=== PATIENT | male | born 1945 | race Caucasian/White ===

== ENCOUNTER 2016-11-17 02:38 | Emergency (ER) ==
--- NOTE | 2016-11-17 03:21 | PROVIDER DOCUMENTATION ---
HPI-General Adult - General Chief Complaint: Weakness Stated Complaint: WEAKNESS Time Seen by Provider: 11/17/16 02:54 Source: patient, family Allergies/Adverse Reactions: Patient Allergies Allergy/AdvReac Type Severity Reaction Status Date / Time influenza virus vaccine, AdvReac ANAPHYLAXIS Verified 11/17/16 02:44 specific Home Medications: Home Medication List Medication Instructions Recorded Confirmed Last Taken Type Omeprazole [Prilosec] 20 mg PO DAILY 08/28/12 11/17/16 06/13/14 06:30 History 20 Alprazolam [Xanax] 0.5 mg PO BID PRN 06/10/14 11/17/16 06/11/14 02:00 History 0.5 Apixaban [Eliquis] 5 mg PO BID 06/10/14 11/17/16 06/11/14 History 5 ROSUVAstatin [Crestor] 20 mg PO HS 06/10/14 11/17/16 06/12/14 22:00 History 20 Spironolactone [Aldactone] 25 mg PO DAILY 06/10/14 11/17/16 06/10/14 08:00 History Temazepam 30 mg PO HS 06/10/14 11/17/16 06/12/14 23:00 History 30 Insulin Detemir [Levemir] 35 unit SQ QAM #0 11/01/14 11/17/16 Unknown Rx Insulin Detemir [Levemir] 35 unit SQ QPM #0 11/01/14 11/17/16 Unknown Rx Insulin Lispro [Humalog] See Protocol SUBQ DIRECTED PRN 11/01/14 11/17/16 Unknown Rx PRN #0 vial Nitroglycerin [Nitroglycerin 0 gm SL Q5M PRN PRN #0 bottle 11/01/14 11/17/16 Unknown Rx Lingual [place]] Ranolazine E.r. [Ranexa] 500 mg PO BID #0 11/01/14 11/17/16 06/13/14 06:30 Rx 1000 Levofloxacin [Levaquin] 750 mg PO DAILY #7 tablet 11/17/16 Unknown Rx - History of Present Illness -Gen Adult Location of Pain/Injury: reports: none Pain Radiation: reports: no radiation Quality of Pain: reports: none Onset/Duration: reports: 2 days ago Timing: reports: still present Context/Activities at Onset: reports: light activity Modifying Factors: improves with: exercise Associated Symptoms: reports: fever/chills, shortness of breath Similar Symptoms Previously?: Yes Recently seen or treated by another doctor?: Yes - Diabetes Related Context Context: reports: high blood sugar Review of Systems - Adult - REVIEW OF SYSTEMS - ADULT Constitutional: reports: fever Eyes: reports: no symptoms reported Ears, Nose, Mouth & Throat: reports: no symptoms reported Cardiovascular: reports: edema, irregular heart rate, orthopnea, palpitations Respiratory: reports: chronic cough, dyspnea on exertion, shortness of breath Gastrointestinal: reports: no symptoms reported Genitourinary: reports: other (DARK MALODOROUS URINE) Musculoskeletal: reports: no symptoms reported Integumentary: reports: no symptoms reported Neurological: reports: no symptoms reported Psychiatric: reports: no symptoms reported Endocrine: reports: no symptoms reported Hematologic/Lymphatic: reports: no symptoms reported Allergic/Immunologic: reports: no symptoms reported All Other Systems: Reviewed and Negative Past History - Adult - PAST MEDICAL HISTORY-ADULT Review of Records: reports: Old Records Reviewed, Nursing Assessment Review, Medications Reviewed, Social history reviewed & non-contributory. Major Childhood Illnesses: reports: denies history Cardiovascular: reports: CAD, CHF, HTN, hyperlipidemia Respiratory: reports: COPD, sleep apnea Gastrointestinal: reports: denies history Obstetrical/Gynecological: reports: denies history Genitourinary: reports: chronic UTI's, prostatitis Musculoskeletal: reports: arthritis Neurological: reports: denies history Psychiatric: reports: denies history Endocrine/Immune: reports: Diabetes Diabetes Type: Type 2 Diabetes controlled by:: Insulin Dependent Other Conditions: reports: denies history - PRIOR SURGERIES/PROCEDURES Surgical/Procedure History: reports: cardiac stent, orthopedic (extremity) (TKA) - PRIOR HOSPITALIZATIONS Prior Hospitalizations: reports: for similar symptoms, for other non-related - IMMUNIZATION STATUS Childhood Immunizations: See Nurse Assessment Flu Vaccine: See Nurse Assessment - FAMILY HISTORY Family History: reviewed, not pertinent - SOCIAL HISTORY Smoking: non-smoker Substance Use: none/never Alcohol Use Frequency: rarely Living Situation: family Physical Exam-General - PHYSICAL EXAM-ADULT Initial Vital Signs Reviewed: Yes - CONSTITUTIONAL General Appearance: no apparent distress, obese - EYES Eyes: PERRL/EOMI - HEAD, EARS, NOSE, MOUTH & THROAT HENMT: normocephalic/atraumatic, moist mucous membranes, normal ENT inspection - NECK Neck: non-tender - RESPIRATORY Respiratory: decreased breath sounds (ON RIGHT), rales (BIBASILAR WORSE ON RIGHT ) - CARDIOVASCULAR Cardiovascular: normal peripheral pulses, irregularly irregular - CHEST (BREASTS) Chest/Breast: deferred - GASTROINTESTINAL (ABDOMEN) Abdominal Exam: normal bowel sounds, non tender (OBESE) - GENITOURINARY Male Genitalia: deferred Rectal Exam: deferred Hemoccult Exam: deferred - LYMPHATIC Lymphatic: no adenopathy - MUSCULOSKELETAL Back Exam: normal inspection, no CVA tenderness Extremity: no pedal edema, other (CHRONIC VENOUS STASIS CHANGES LEGS) Peripheral Pulses: radial (R): 3+, radial (L): 3+, dorsalis-pedis (R): 1+, dorsalis-pedis (L): 1+ - SKIN Integumentary: normal color, normal turgor, warm/dry - NEUROLOGIC Neurologic: grossly normal, no motor/sensory deficits - PSYCHIATRIC Psych/Mental Status: normal mood/affect, normal thought content, normal thought process, oriented x 3 Progress - XRAY 1 XRAY Study: Chest (cardiomegally with somewhat more prominent pulmonary vasculature than 10/2014 study) Departure - Departure Time of Disposition Order: 05:00 DIAGNOSIS: UTI (urinary tract infection) Qualifiers: Urinary tract infection type: acute pyelonephritis Qualified Code(s): N10 - Acute pyelonephritis Disposition: HOME 01 Certified Medical Emergency: Emergent Condition: Fair Additional Instructions: FOLLOW UP WITH FAMILY DOCTOR IN 2-3 DAYS Prescriptions: Levofloxacin [Levaquin] 750 mg PO DAILY #7 tablet
[2016-11-17 03:29] LABS: MANUAL DIFF NEEDED? NO
[2016-11-17 03:30] LABS: URINE SOURCE VOIDED
[2016-11-17 03:37] LABS: BASO% 0.2 % (0.0-0.8); EOS# 0.05 X1000 (0.0-0.7); EOS% 0.4 % (0.0-10.0); HEMOGLOBIN 17.7 g/dL (14.0-18.0); IMM GRAN# 0.08 X1000 (0.0-0.04); IMM GRAN% 0.6 % (0.0-0.5); LYMPH# 1.51 X1000 (1.2-3.4); LYMPH% 11.3 % (20.5-51.1); MCH 30.6 PG (27-31); MCHC 34.7 g/dL (33-37); MCV 88.2 FL (81-99); MONO% 7.5 % (1.7-9.3); MPV 9.3 FL (7.4-10.4); PLT 141 X1000 (130-400); RBC 5.78 XMIL (4.7-6.1)
[2016-11-17 03:52] LABS: ALBUMIN 3.2 g/dL (3.5-5.0); CALCIUM 8.8 mg/dL (8.8-10.2); POTASSIUM 4.4 mmol/L (3.5-5.1); TOTAL BILIRUBIN 0.7 mg/dL (0.20-1.00); TOTAL PROTEIN 6.6 g/dL (6.3-8.3)
[2016-11-17 04:10] LABS: BILIRUBIN URINE 1+ (NEGATIVE); BLOOD URINE 4+ (NEGATIVE); CLARITY CLEAR (CLEAR); COLOR AMBER; LEUKOCYTES URINE TRACE (NEGATIVE); NITRITE URINE NEGATIVE (NEGATIVE); PROTEIN URINE 2+(100 mg/dL) mg/dL (NEGATIVE); UROBILINOGEN URINE 1+(1 mg/dL)
[2016-11-17 04:18] LABS: URINE EPITHELIAL CELLS <10 /HPF (<10); URINE RBC TNTC /HPF (<10); URINE WBC <10 /HPF (<10)
[2016-11-17 04:19] LABS: URINE CULTURE PL NEEDED? YES
[2016-11-17 04:23] LABS: URINE SMALL ROUND CELLS RENAL PRESENT
[2016-11-17] MEDS ORDERED: LEVAQUIN PO ONE (04:53)
[2016-11-17 05:20] VITALS: BP 132/72
--- NOTE | 2016-11-17 08:20 | Diag Imaging Result Document ---
PROCEDURE NAME: CHEST-2 VIEWS - 11/17/2016 FRONTAL AND LATERAL CHEST, TWO VIEWS: COMPARISON: 10/31/2014. FINDINGS: The lungs are well expanded. The heart is not enlarged. The vessels are not distended. There are no infiltrates. No pleural effusions. IMPRESSION: No pneumonia.
== END 2016-11-17 05:28 | disposition home or self-care (01) ==
LOC: P.ED 02:38
DX: N10 Acute pyelonephritis (principal); R53.1 Weakness; R50.9 Fever, unspecified; R06.02 Shortness of breath; R60.9 Edema, unspecified; R06.01 Orthopnea; R00.2 Palpitations; R05 Cough; R06.00 Dyspnea, unspecified; I87.8 Other specified disorders of veins; I25.10 Atherosclerotic heart disease of native coronary artery without angina pectoris; I10 Essential (primary) hypertension; E78.5 Hyperlipidemia, unspecified; J44.9 Chronic obstructive pulmonary disease, unspecified; M19.90 Unspecified osteoarthritis, unspecified site; E11.9 Type 2 diabetes mellitus without complications; E66.9 Obesity, unspecified; Z79.01 Long term (current) use of anticoagulants; Z79.4 Long term (current) use of insulin; Z79.899 Other long term (current) drug therapy; Z87.440 Personal history of urinary (tract) infections; Z96.659 Presence of unspecified artificial knee joint
CPT/HCPCS: 71020; 80053; 81001; 85025; 87088

== ENCOUNTER 2018-08-14 05:39 | Inpatient (IN) ==
[2018-08-14] MEDS ORDERED: ASPIRIN PO ONE (06:13)
--- NOTE | 2018-08-14 06:30 | Diag Imaging Result Doc PS360 ---
EXAM: CHEST-1 VIEW HISTORY: cp TECHNIQUE: Portable chest single view COMPARISON: 05/04/2018 FINDINGS: The lungs are well expanded. The heart is enlarged. There is mild vascular distention. There is a small right pleural effusion. No consolidation. IMPRESSION: Cardiomegaly with pulmonary edema. Electronically signed by Carmelo Bajwa 08/14/2018 6:28 AM
[2018-08-14 06:37] LABS: BASO# 0.07 X1000 (0.0-0.2); BASO% 1.6 % (0.0-0.8); EOS# 0.55 X1000 (0.0-0.7); EOS% 12.7 % (0.0-10.0); HEMATOCRIT 45.1 % (42.0-52.0); HEMOGLOBIN 14.7 g/dL (14.0-18.0); LYMPH# 1.18 X1000 (1.2-3.4); LYMPH% 27.2 % (20.5-51.1); MCH 29.9 PG (27-31); MCHC 32.6 g/dL (33-37); MCV 91.9 FL (81-99); MONO# 0.41 X1000 (0.11-0.59); MONO% 9.4 % (1.7-9.3); MPV 9.3 FL (7.4-10.4); NEUT# 2.13 X1000 (1.4-6.5); NEUT% 49.1 % (42.2-75.2); PLT 127 X1000 (130-400); RBC 4.91 XMIL (4.7-6.1); RDW 15.3 % (11.5-14.5); WBC 4.34 X1000 (4.8-10.8)
[2018-08-14 06:47] LABS: AGAP 9; ALBUMIN 3.2 g/dL (3.5-5.0); ALKALINE PHOSPHATASE 42 U/L (32-122); BUN 13 mg/dL (8-22); CALCIUM 9.1 mg/dL (8.8-10.2); CHLORIDE 101 mmol/L (98-107); CK PROFILE 64 U/L (24-204); COSMO 276; CREATININE 0.8 mg/dL (0.7-1.2); ESTIMATED GFR > 60; GLUCOSE 103 mg/dL (70-104); GOT 16 U/L (10-34); GPT 9 U/L (10-44); SODIUM 138 mmol/L (136-145); TCO2 28 mmol/L (25-35); TOTAL PROTEIN 6.5 g/dL (6.3-8.3)
[2018-08-14 06:54] LABS: INR 1.13; PROTIME 15.4 Seconds (11.0-16.0)
[2018-08-14 06:55] LABS: PTT 37.4 Seconds (22.3-41.8)
[2018-08-14] MEDS ORDERED: LASIX IV ONE (06:57)
[2018-08-14] MEDS ORDERED: MORPHINE IV ONE (06:57)
--- NOTE | 2018-08-14 07:04 | PROVIDER DOCUMENTATION ---
HPI-Chest Pain - General Chief Complaint: Chest Pain Stated Complaint: chest pain Time Seen by Provider: 08/14/18 06:49 Source: patient, family Allergies/Adverse Reactions: Patient Allergies Allergy/AdvReac Type Severity Reaction Status Date / Time Penicillins Allergy Severe ANAPHYLAXIS Verified 06/30/18 10:13 clindamycin [From Cleocin] Allergy Unknown NAUSEA Verified 06/30/18 10:13 influenza virus vaccine, AdvReac Severe ANAPHYLAXIS Verified 06/30/18 10:13 specific Home Medications: Home Medication List Medication Instructions Recorded Confirmed Last Taken Type Omeprazole [Prilosec] 20 mg PO DAILY 08/28/12 06/30/18 06/30/18 08:00 History Alprazolam [Xanax] 0.5 mg PO BID PRN PRN 06/10/14 06/30/18 06/29/18 History Apixaban [Eliquis] 5 mg PO BID 06/10/14 06/30/18 06/29/18 History ROSUVAstatin [Crestor] 20 mg PO HS 06/10/14 06/30/18 06/29/18 History Hydrocodone/Acetaminophen [[place] 1 each PO Q6H PRN PRN 05/04/18 06/30/18 History 10-325 Tablet] Insulin Glargine [Lantus] 35 units SQ BID 05/04/18 06/30/18 06/30/18 08:00 History Metoprolol Succinate E.r. [Toprol 50 mg PO BID #120 tab 05/05/18 06/30/18 08:00 Rx Xl] Cholecalciferol (Vitamin D3) 1,000 unit PO DAILY 06/29/18 06/30/18 06/23/18 History [Vitamin D3] Furosemide [Lasix] 40 mg PO QAM PRN 06/29/18 06/30/18 06/16/18 History LISINOpril [Prinivil] 10 mg PO DAILY 06/29/18 06/30/18 06/30/18 08:00 History Meclizine HCl 12.5 mg PO TID 06/29/18 06/30/18 06/29/18 History Nitroglycerin [Nitromist] 4.1 gm TL PRN PRN 06/29/18 06/30/18 Unknown History Oxybutynin E.r. [Ditropan Xl] 10 mg PO BID 06/29/18 06/30/18 06/30/18 08:00 History Potassium Chloride 10 meq PO DAILY PRN 06/29/18 06/30/18 06/16/18 History Temazepam [Restoril] 30 mg PO HS PRN PRN 06/29/18 06/30/18 06/28/18 History Triamcinolone Acetonide [Nasacort] 1 spray NS DAILY 06/29/18 06/30/18 06/29/18 History - History of Present Illness-CP Nature of Presenting Problem: 72 yo male, hx of aortic stenosis and ASCVD a well as CHF, c/o intermittent right parasternal CP radiating across precordium to left shoudler for the last 2 -3 days, associated with SOB, MADDEN and orthopnea. States took multiple NTG over the weekend, which di help the pain somewhat. Also took 6 Frederick 10/325 over the weekend. Called Dr. Richard and Marko last night, told to come here that he may need evaluation for valve replacement. States pain was much more severe this morning, only "sore" now. Location: reports: substernal Chest Pain Radiation: reports: shoulders (left) Quality of Pain: reports: aching, pressure Severity in ED: mild (had been severeat home) Onset/Duration: 3 days ago Timing: still present, intermittent, changing over time, getting worse Context/Activities at Onset: reports: light activity Modifying Factors: improves with: analgesics, rest, other (NTG). worse with: movement Associated Symptoms: reports: shortness of breath, weakness (very weak this morning.) Nitro Today/Relief: 0.4 mg x 3, provided at home, mild relief Aspirin Treatment Today: 325 mg x 1 Prior Chest Pain/Cardiac Workup: reports: cardiac cath, cardiolite scan, echocardiography, stress test, thallium scan Similar Symptoms Previously?: Yes Recently Seen Here or By Another Healthcare Provider: Yes (Drs. Gonsalez are cardiologists, Dr. Richard is his ) Review of Systems - Adult - REVIEW OF SYSTEMS - ADULT Constitutional: reports: chills ("cold all the time because I'm on Eliquis"). denies: fever, fatique, night sweats, weight gain, weight loss Eyes: reports: no symptoms reported Ears, Nose, Mouth & Throat: reports: no symptoms reported Cardiovascular: reports: see HPI, chest pain, edema, orthopnea, PND. denies: heart murmur, irregular heart rate, palpitations, poor circulation, syncope Respiratory: reports: see HPI, cough, dyspnea on exertion, shortness of breath Gastrointestinal: reports: no symptoms reported Genitourinary: reports: no symptoms reported Musculoskeletal: reports: no symptoms reported Integumentary: reports: no symptoms reported Neurological: reports: no symptoms reported Psychiatric: reports: no symptoms reported Endocrine: reports: no symptoms reported Hematologic/Lymphatic: reports: no symptoms reported Allergic/Immunologic: reports: no symptoms reported All Other Systems: Reviewed and Negative Past History - Adult - PAST MEDICAL HISTORY-ADULT Review of Records: reports: Old Records Reviewed, Nursing Assessment Review, Medications Reviewed, Social history reviewed & non-contributory. Major Childhood Illnesses: reports: denies history Cardiovascular: reports: CAD, CHF, HTN, hyperlipidemia Respiratory: reports: COPD, sleep apnea Gastrointestinal: reports: denies history Obstetrical/Gynecological: reports: denies history Genitourinary: reports: chronic UTI's, prostatitis Musculoskeletal: reports: arthritis Neurological: reports: denies history Psychiatric: reports: denies history Endocrine/Immune: reports: Diabetes Other Conditions: reports: denies history - PRIOR SURGERIES/PROCEDURES Surgical/Procedure History: reports: cardiac stent, orthopedic (extremity) (TKA) - PRIOR HOSPITALIZATIONS Prior Hospitalizations: reports: for similar symptoms, for other non-related - IMMUNIZATION STATUS Childhood Immunizations: See Nurse Assessment Flu Vaccine: See Nurse Assessment - FAMILY HISTORY Family History: reviewed, not pertinent - SOCIAL HISTORY Smoking: cigarettes, less than 1 pack/day Provider spent 3-5 mins advising pt. on dangers of tobacco.: Discussed manners to quit use, and f/u contacts for add'l counseling. Substance Use: none/never Alcohol Use Frequency: rarely Living Situation: family Physical Exam-General - PHYSICAL EXAM-ADULT Initial Vital Signs Reviewed: Yes (VSSAF) - CONSTITUTIONAL General Appearance: appears well, alert, no apparent distress - EYES Eyes: PERRL/EOMI, pink conjunctivae - HEAD, EARS, NOSE, MOUTH & THROAT HENMT: normocephalic/atraumatic, moist mucous membranes, normal ENT inspection, pharynx normal - NECK Neck: non-tender, full range of motion, supple, normal inspection - RESPIRATORY Respiratory: chest non-tender, no pleuratic chest pain, no respiratory distress , no accessory muscle use, decreased breath sounds, rhonchi - CARDIOVASCULAR Cardiovascular: normal peripheral pulses, no JVD, systolic murmur, gallop/S3, irregularly irregular, PMI displaced laterally - GASTROINTESTINAL (ABDOMEN) Abdominal Exam: normal bowel sounds, non tender, soft, no organomegaly, no pulsatile mass - MUSCULOSKELETAL Back Exam: normal inspection, no CVA tenderness, no vertebral tenderness Extremity: normal range of motion, non-tender, normal gait, no calf tenderness, normal capillary refill, pedal edema (3+ bilateral) - SKIN Integumentary: normal turgor, warm/dry, rash (chronic stasis changes bilateral lower extremities) - NEUROLOGIC Neurologic: towel sorter II-XII nml as tested, grossly normal, no motor/sensory deficits - PSYCHIATRIC Psych/Mental Status: normal mood/affect, normal thought content, normal thought process, oriented x 3 Progress - PLAN OF CARE/RESULTS Progress/Plan/Lab Results: Vital Signs - 8 hr 08/14/18 05:44 08/14/18 05:59 08/14/18 06:03 Temperature 98.3 F Pulse Rate 96 H 85 100 H Respiratory Rate 24 21 25 H Blood Pressure 165/92 182/125 137/97 O2 Sat by Pulse Oximetry 98 98 99 Laboratory Results - last 24 hr 08/14/18 08/14/18 08/14/18 05:49 05:49 05:49 WBC 4.34 L RBC 4.91 Hgb 14.7 Hct 45.1 MCV 91.9 MCH 29.9 MCHC 32.6 L RDW Std Deviation 15.3 H Plt Count 127 L MPV 9.3 Immature Gran % (Auto) 0.0 Neut % (Auto) 49.1 Lymph % (Auto) 27.2 [place] % (Auto) 9.4 H Eos % (Auto) 12.7 H Baso % (Auto) 1.6 H Immature Gran # (Auto) 0.00 Neut # (Auto) 2.13 Lymph # (Auto) 1.18 L [place] # (Auto) 0.41 Eos # (Auto) 0.55 Baso # (Auto) 0.07 PT INR PTT (Actin FS) Sodium 138 Potassium 4.0 Chloride 101 Carbon Dioxide 28 Anion Gap 9 BUN 13 Creatinine 0.8 Estimated GFR/1.73 m2 > 60 BUN/Creatinine Ratio 16 Glucose 103 Calculated Osmolality 276 Calcium 9.1 Total Bilirubin 0.90 AST 16 ALT 9 L Alkaline Phosphatase 42 Creatine Kinase 64 Troponin T Fsh-H-Edbawyypnhv Pept 1552 H Total Protein 6.5 Albumin 3.2 L Globulin 3.3 Albumin/Globulin Ratio 1.0 Urine Source Urine Color Urine Turbidity Urine pH Ur Specific [place] Urine Protein Ur Glucose (Stick) Ur Ketones (Stick) Urine Blood Urine Nitrite Urine Bilirubin Urobilinogen Dipstick Urine Leukocytes Urine WBC (Auto) Urine RBC (Auto) U Epithel Cells (Auto) Urine Bacteria (Auto) 08/14/18 08/14/18 08/14/18 05:49 05:49 06:40 WBC RBC Hgb Hct MCV MCH MCHC RDW Std Deviation Plt Count MPV Immature Gran % (Auto) Neut % (Auto) Lymph % (Auto) [place] % (Auto) Eos % (Auto) Baso % (Auto) Immature Gran # (Auto) Neut # (Auto) Lymph # (Auto) [place] # (Auto) Eos # (Auto) Baso # (Auto) PT 15.4 INR 1.13 PTT (Actin FS) 37.4 Sodium Potassium Chloride Carbon Dioxide Anion Gap BUN Creatinine Estimated GFR/1.73 m2 BUN/Creatinine Ratio Glucose Calculated Osmolality Calcium Total Bilirubin AST ALT Alkaline Phosphatase Creatine Kinase Troponin T < 0.010 Pvs-[id number]-Zltvqwxiguk Pept Total Protein Albumin Globulin Albumin/Globulin Ratio Urine Source CLEAN CATCH Urine Color YELLOW Urine Turbidity CLEAR Urine pH 6.0 Ur Specific [place] 1.000 Urine Protein 100 A Ur Glucose (Stick) NEGATIVE Ur Ketones (Stick) NEGATIVE Urine Blood SMALL A Urine Nitrite NEGATIVE Urine Bilirubin NEGATIVE Urobilinogen Dipstick NORMAL Urine Leukocytes NEGATIVE Urine WBC (Auto) <10 Urine RBC (Auto) <10 U Epithel Cells (Auto) <10 Urine Bacteria (Auto) NEGATIVE Orders Category Date Time Status Cardiac Monitoring DIRECTED Care 08/14/18 06:13 Active Misc. NRSG Communication Order DIRECTED Care 08/14/18 07:40 Active Oxygen Therapy- ED Nursing DIRECTED Care 08/14/18 06:13 Active Saline Loc NOW Care 08/14/18 06:13 Active CHEST-1 VIEW [RAD] Stat Exams 08/14/18 06:13 Completed CBC WITH ELECTRONIC DIFF [HEME] Stat Lab 08/14/18 05:49 Completed CK PROFILE [SP CHEM] Stat Lab 08/14/18 05:49 Completed COMPREHENSIVE METABOLIC PANEL [CHEM] Stat Lab 08/14/18 05:49 Completed PRO B-NATRIURETIC PEPTIDE Stat Lab 08/14/18 05:49 Completed PROTIME WITH INR [COAG] Stat Lab 08/14/18 05:49 Completed PTT [COAG] Stat Lab 08/14/18 05:49 Completed TROPONIN T Stat Lab 08/14/18 05:49 Completed UA NIMS W/REFLEX CULT [URINALYSIS] Stat Lab 08/14/18 06:40 Completed Aspirin Med 08/14/18 06:13 Discontinued 325 mg PO NOW ONE Furosemide [Lasix] Med 08/14/18 06:57 Discontinued 40 mg IV NOW ONE Morphine Med 08/14/18 06:57 Discontinued 2 mg IV NOW ONE Nitroglycerin Med 08/14/18 06:57 Discontinued 1 inch TOP NOW ONE CP/SOB/Palp >45 yrs of Age Stat Oth 08/14/18 06:13 Ordered EKG [EKG] Stat Ther 08/14/18 06:15 Ordered Result Diagrams: 08/14/18 05:49 08/14/18 05:49 - CONSULTS/PCP/HOSPITALIST Notification #1 *Consult/PCP/Hospitalist*: Marko paged at [phone], Deep paged at [phone] Time Discussed: 07:40 (Unable to transfer to b/c they are holding 30 admits in ED) Reason/Comments: Admit to hospitalist, no nitrates, gentle diuresis Consult Disposition: Admit #2 Consult: ART Garcia Time Discussed: 07:58 Reason/Comments: admit to [facility] Consult Disposition: Admit Departure - Departure Date of Disposition Decision: 08/14/18 Time of Disposition Decision: 07:59 DIAGNOSIS: Substernal precordial chest pain, History of aortic stenosis CHF (congestive heart failure) Qualifiers: Heart failure type: combined systolic and diastolic Heart failure chronicity: acute on chronic Qualified Code(s): I50.43 - Acute on chronic combined systolic (congestive) and diastolic (congestive) heart failure Disposition: ADMITTED INPATIENT 09 Certified Medical Emergency: Emergent Condition: Fair - Critical Care Note This patient required my direct & personal management of CC.: No Attestation - Physician/ MARK Attestation Patient care was provided by Advanced Practice Provider:: No The physician spent face to face time with patient:: Yes Advanced Practice Provider documentation review:: Supervising physician onsite and consulted in the evaluation and care of this patient. The physician did have a face to face encounter with the patient.
[2018-08-14 07:14] LABS: URINE SOURCE CLEAN CATCH
[2018-08-14 07:18] LABS: BILIRUBIN URINE NEGATIVE (NEGATIVE); BLOOD URINE SMALL (NEGATIVE); COLOR YELLOW; GLUCOSE URINE NEGATIVE (NEGATIVE); KETONE URINE NEGATIVE (NEGATIVE); LEUKOCYTES URINE NEGATIVE (NEGATIVE); NITRITE URINE NEGATIVE (NEGATIVE); PROTEIN URINE 100 mg/dL (NEGATIVE); TURBIDITY URINE CLEAR (CLEAR); UROBILINOGEN URINE NORMAL (NORMAL)
[2018-08-14 07:20] LABS: UR EPITHELIAL CELLS <10 /HPF (<10); URINE BACTERIA NEGATIVE /HPF; URINE RBC <10 /HPF (<10); URINE WBC <10 /HPF (<10)
[2018-08-14] MEDS: NITROGLYCERIN TOP ONE ×2 (07:20→07:45)
--- NOTE | 2018-08-14 08:13 | EKG Report ---
Test Performed on : 08/14/2018 05:41:15 AM Test Reason : cp Blood Pressure : / mmHG Vent. Rate : 083 BPM Atrial Rate : 067 BPM P-R Int : 000 ms QRS Dur : 076 ms QT Int : 366 ms P-R-T Axes : 000 032 167 degrees QTc Int : 430 ms Atrial fibrillation. Septal infarct (cited on or before 29-JUN-2018) ST & T wave abnormality, consider lateral ischemia Abnormal ECG When compared with ECG of 29-JUN-2018 11:24, Questionable change in initial forces of Septal leads Nonspecific T wave abnormality has replaced inverted T waves in Inferior leads Unconfirmed Result
[2018-08-14] MEDS ORDERED: NORCO-10 PO PRN (08:23)
[2018-08-14] MEDS ORDERED: ELIQUIS PO SCH (09:00)
[2018-08-14] MEDS ORDERED: NITROGLYCERIN SL PRN (10:06)
[2018-08-14] MEDS ORDERED: KLOR-CON PO PRN (10:06)
[2018-08-14] MEDS ORDERED: XOPENEX NEB INH PRN (10:27)
[2018-08-14] MEDS ORDERED: NS NEB INH SCH (10:30)
[2018-08-14] MEDS ORDERED: RELISTOR SUBQ ONE (10:30)
[2018-08-14] MEDS: SOLU-MEDROL IV SCH ×2 (11:00→19:54)
[2018-08-14] MEDS: BASAGLAR SUBQ SCH ×2 (11:00→22:33)
[2018-08-14] MEDS: ZITHROMAX 500 MG/NS 500 MG/250 ML IVPB IV SCH (11:05)
--- NOTE | 2018-08-14 11:05 | CARDIOLOGY CONSULTATION ---
DATE: 08/14/2018 REFERRING PHYSICIAN: Hospitalist Service. REASON FOR CONSULTATION: Dyspnea, chest pain. PRIMARY DOCTOR: Jayjay Richard MD. HISTORY: Mr. Gambino was in his usual state of health up until Tuesday early afternoon. He started having indigestion-like discomfort that appeared to creep up on him. Through the night, he put on his CPAP mask, he slept. However, throughout the course of August 13, he continued to have chest discomfort and he felt somewhat short of breath. He has a very limited ability to perform physical action. Late on Tuesday evening and early this morning at about 2 a.m., he felt very uncomfortable and decided to come into the emergency room. Upon arrival to the ER, they did an EKG that shows atrial fibrillation without any acute ischemic changes. There is a nonspecific ST in the inferolateral leads. They did a PT/PTT that was normal. His CPK is normal. Troponin is negative. ProBNP is 1552. His hemoglobin is 14.7. Platelet count is 127,000. Chest x-ray showed cardiomegaly with pulmonary edema. The patient has been given Lasix. He is feeling somewhat better now. PAST HISTORY: His past history is positive for severe coronary heart disease. He had a heart cath in June of 2014 that showed 50% LAD with some aneurysmal appearance, mild to moderate diffuse disease with multiple small diagonals with severe disease, ramus mid 60% , RCA proximal calcified 40% to 50% and distal 60%. He has aortic stenosis. He has had a transthoracic echo in April of 2018 that showed mean pressure gradient across the valve 40 mmHg. He has had a MEGAN done recently that shows calcification of the aortic valve. The patient was being considered for possible evaluation in [facility] for aortic valve intervention. His past history is positive for diabetes mellitus type 2, hypertension, sleep apnea syndrome, obesity. His body mass index is 47. He has depression. He has skin cancer. The patient has persistent atrial fibrillation. This has been going on for several years now. SURGICAL HISTORY: He has had previous stent in the coronary arteries. He has had skin cancer removal. Cataract extraction. He has had left hip replacement. The patient has developed neuropathy over the years. REVIEW OF SYSTEMS: He has chronic dizziness. This has been going on for 10 years. He also has significant limitation to ambulate. He walks with a cane and with a walker. He has chronic venous stasis dermatitis in both legs that has been going on for many years. SOCIAL HISTORY: He has been for 53 years. He has 3 children. He has retired from [employer]. He has been a smoker up until 5 weeks ago, 1 pack of cigarettes a day for many years. Not a drinker. FAMILY HISTORY: Brother has had stents. HOME MEDICATIONS: At the time of this admission included Xanax 0.5 twice a day , Eliquis 5 mg twice a day, cholecalciferol 1000 units daily, furosemide 40 mg daily, lisinopril 10 mg daily, meclizine 12.5 three times a day, lisinopril 10 daily, omeprazole 20 daily, oxybutynin 10 mg twice a day, potassium chloride 10 mEq daily, Crestor 20 at bedtime, Restoril 30 mg at bedtime. ALLERGIES: Penicillin, clindamycin, influenza virus vaccine. PHYSICAL EXAMINATION: Vital signs: Blood pressure now is 137/97, pulse 100, respirations 25, temperature is 98.3. General: He is awake, obese, in no distress. HEENT: Unremarkable. Chest: Diffusely diminished breath sounds especially in the right lung. Cardiac: Heart sounds are irregularly irregular, no gallop is noted. muffled systolic murmur over aortic area. Abdomen: Obese, nontender. Extremities: Showed markedly decreased pulses. There is 1+ to 2+ brawny edema with extensive discoloration of both legs, extensive venous stasis dermatitis. Neurological: Follows commands , moves four extremities. IMPRESSION: 1. Patient presenting with persistent chest pain, possible unstable angina pectoris. 2. History of severe coronary heart disease. 3. Severe aortic stenosis. 4. Morbidly obese. 5. Sleep apnea syndrome. 6. History of long-term tobacco user. 7. Diabetes mellitus type 2. 8. Hypertension. RECOMMENDATION: At this point in time, we will treat the patient with Lasix. Will put him on full-dose Lovenox. We will discuss with his regular physicians whether or not we should pursue right and left heart catheterization during this admission and probably will have to refer him to [facility] for management of severe coronary heart disease compounded by severe aortic stenosis. He understood. He agreed to proceed. My understanding is that they have contacted [facility], and they did not have available beds to facilitate a transfer at this time. cc: Hayes Adame MD [facility]
[2018-08-14] MEDS: VITAMIN D PO SCH (11:30)
[2018-08-14] MEDS: LOVENOX SUBQ SCH ×2 (11:32→23:08)
--- NOTE | 2018-08-14 11:43 | HISTORY AND PHYSICAL ---
PRIMARY CARE PHYSICIAN: Dr. Jayjay Richard. CHIEF COMPLAINT: Chest pain. HISTORY OF PRESENT ILLNESS: Mr. Gambino is a 72-year-old male with multiple medical problems including coronary artery disease, critical aortic stenosis, peripheral arterial disease, morbid obesity, hypertension, and others who presents with progressively worse chest pain that began on Tuesday. Mr. Gambino was actually discharged from our service on 05/05/2018 with orthostatic hypotension and dyspnea. He followed up with [facility] on 06/30/2018 which showed severe . He was actually scheduled to follow up with Dr. Deshpande tomorrow. However, he started having increasing symptoms over the weekend. He states on Tuesday he ate and about 30 minutes later started having a mid sternal pain radiating to the left shoulder, initially was intermittent progressing to constant. This was more of a pressure associated with shortness of breath. There was some nausea this morning. He has chronic lower extremity edema and some mild orthopnea. He also endorses 1 week of cough with green sputum production, intermittent chills, and shortness of breath. He decided to come to the ER today for further evaluation as the pain has become constant and is no longer relieved with his nitroglycerin spray. In the ER, his laboratory data was largely unremarkable. He did have some thrombocytopenia and a bit of proBNP elevation. His chest x-ray did show cardiomegaly with pulmonary edema. The ER physician spoke with Dr. Adame who felt the patient needed admission for further treatment. We will now admit him to the CICU for chest pain and congestive heart failure exacerbation. PAST MEDICAL HISTORY: 1. Type 2 diabetes requiring insulin. 2. Morbid obesity. 3. Peripheral artery disease. 4. Chronic atrial fibrillation on anticoagulation. 5. CAD. 6. Diabetic peripheral neuropathy. 7. GERD. 8. BPH. 9. Obstructive sleep apnea requiring CPAP. 10. Hyperlipidemia. 11. Diastolic heart failure. SURGICAL HISTORY: 1. Sinus surgeries in the past. 2. He has also had a recent MEGAN. SOCIAL HISTORY: He quit smoking 5 weeks ago. He has a [id number] history. Denies alcohol or drug use. and daughter at the bedside. REVIEW OF SYSTEMS: Fourteen-point review of systems obtained, found to be negative with the exception of the HPI. ALLERGIES: Penicillin, clindamycin, flu virus. HOME MEDICATIONS: 1. Eliquis 5 mg b.i.d. 2. Xanax 0.5 mg b.i.d. 3. Lasix 40 mg a.m. 4. [place] q.6 h. as needed for pain. 5. Lantus 35 units subcutaneous b.i.d. 6. Prinivil 10 mg daily. 7. Meclizine 12.5 mg t.i.d. 8. NitroMist spray as directed. 9. Prilosec 20 mg daily. 10. Ditropan 10 mg b.i.d. 11. KCl 10 mEq daily. 12. Crestor 20 mg at bedtime. 13. Restoril 30 mg at bedtime. 14. Nasacort daily. 15. Toprol XL 50 mg b.i.d. PHYSICAL EXAMINATION: VITAL SIGNS: Blood pressure is 142/97, heart rate is 103, respiratory rate 17, O2 sat 95% on nasal cannula, temperature 98.3. GENERAL: Chronically ill, disheveled and obese 72-year-old male lying in a hospital bed in no acute distress. NEUROLOGIC: He is awake, alert, and oriented, follows commands. No focal deficits. HEENT: Head atraumatic and normocephalic. His pupils are equal, round and reactive to light. His oral mucosa is a bit dry. Trachea is midline. NECK: There is no JVD. CHEST: Diminished at the bases with some crackles. CV: Irregular rate and rhythm, S1, S2 noted. A 1-2/6 systolic ejection murmur noted. GI: Mild epigastric right upper quadrant tenderness to palpation. Otherwise, abdomen is without distension or rigidity. EXTREMITIES: Chronic venous stasis noted bilaterally. Pulses are diminished. He has 1+ edema. DIAGNOSTIC DATA: Chest x-ray shows cardiomegaly and pulmonary edema. EKG: Atrial fibrillation, nonspecific ST and T changes. WBC 4.34, hemoglobin 14.7, hematocrit 45.1, platelet count 127. INR 1.13. Chemistries begin with the exception of a proBNP of 1552. Albumin 3.2. Urinalysis negative. ASSESSMENT AND PLAN: 1. Chest pain: The patient has known coronary artery disease and is currently being evaluated on an outpatient basis for his valve and coronaries. However, he also has some pain to palpation over the mid sternum and right upper quadrant and pain after eating, so would not rule out gastric or peptic ulcer disease as well as gallbladder disease. Will trend his cardiac enzymes. Dr. Adame has already seen the patient and has ordered tests. Will continue monitoring him closely in the CICU. 2. Critical aortic stenosis: Overall management per Cardiology. Will continue with light diuresis. He will likely need a surgical evaluation. Given his physical status and comorbidities, an open thoracotomy will likely be risky with this patient. 3. Known coronary artery disease: Will switch the patient to Lovenox 1 mg/kg b.i.d., trend his enzymes, defer to Dr. Adame and Cardiology. He is being monitored continuously on telemetry. 4. Bronchitis: The patient reports green sputum with chills. With his [id number] history, he likely has chronic bronchitis but that would need to be further evaluated with PFTs. In the meantime, will cover him with azithromycin, breathing treatments, light IV steroids, and incentive spirometry. 5. Diabetes mellitus. Continue patterned sugars, sliding scale insulin, and add hemoglobin A1c for the morning. 6. DVT prophylaxis with Lovenox. Further recommendations to follow. Dictated by ART Ren for Artis Edgar MD cc: ART Ren MD Kirk L. Jackson, MD
--- NOTE | 2018-08-14 12:31 | PROGRESS NOTE ---
DATE: 08/14/2018 SUBJECTIVE: Please see completed history and physical per ART Roa. Patient presented with chest pain. He has known critical aortic stenosis. Dr. Adame has evaluated the patient and feels he needs come in for evaluation. He will likely need surgical remediation of his valve. He has had chest pain. He has had shortness of breath. He has had lower extremity edema. Clinically he was felt to have pulmonary edema. He has been initiated on anticoagulation per Cardiology, placed on diuretics. Chest x-ray shows cardiomegaly and pulmonary edema. He will get a stress test or resting stress echo, possibly decide on left heart catheterization at this facility, and he may be a candidate for TAVR procedure once he is stabilized. He has rales on exam and a systolic ejection murmur, although I did not appreciate musical quality to it. PLAN: We will continue diuretics, anticoagulation and follow. The rest of orders will really be primarily per Cardiology Service. This is a [id number] encounter note with Jose Foster. cc: Artis Edgar MD
[2018-08-14] MEDS: ANTIVERT PO SCH ×2 (13:00→18:30)
[2018-08-14] MEDS: XOPENEX NEB INH SCH ×4 (13:05→23:27)
--- NOTE | 2018-08-14 14:53 | ECHO REPORT ---
ORDER DATE: 08/14/2018 LIMITED ECHOCARDIOGRAPHY: INDICATION: Severe aortic stenosis. FINDINGS: 1. This is an extremely difficult study. Limited images of the left ventricle, right ventricle, and aortic valve are available. 2. Patient's previous echo in April 2018 demonstrated a mean gradient of 40. No valve area was identified on that study. Subsequent transesophageal echo at the end of June suggested severe aortic stenosis with planimetry of the valve of 0.6 to 0.7 cm2. 3. Current echo seems to demonstrate preserved LV and RV systolic function. Definity echo contrast was used. Limited right ventricular images were obtained. The estimated EF appears to be greater than 55%. 4. Doppler evaluation of the aortic valve was very limited. It seems quite difficult to given accurate estimation of the peak and mean gradient as the Doppler envelope for the aortic valve is very ill defined. I do not believe I have very accurate velocity measurements for aortic valve or the LV outflow tract, but it does appear that the velocity across the aortic valve is more than 4 m/sec. There does not appear to be any pericardial effusion identified on this study. cc: MD Hayes Vidal MD
--- NOTE | 2018-08-14 16:00 | Diag Imaging Result Document ---
PROCEDURE NAME: MYOCARDIAL PERFU SCAN, REST - 08/14/2018 MYOCARDIAL PERFUSION SCAN: INDICATION: Chest pain. Coronary disease. PROCEDURE PERFORMED: Rest myocardial perfusion imaging. PROCEDURE IN DETAIL: Mr. Gambino was brought to the nuclear laboratory and had a resting study with injection of 41.2 mCi of technetium-99m sestamibi with the usual imaging protocol utilized. FINDINGS: 1. No evidence of abnormal extracardiac uptake. 2. Rest perfusion imaging shows normal homogeneous uptake of radiotracer throughout the myocardial segments. There is no evidence of resting defects. 3. Normal ejection fraction of 72%. End-diastolic volume 103. End-systolic volume 29. Normal wall motion. cc: MD Hayes Vidal MD
[2018-08-14] MEDS: DITROPAN XL PO SCH (22:32)
[2018-08-14] MEDS: CRESTOR PO SCH (22:33)
[2018-08-15] MEDS: XANAX PO PRN ×2 (01:22→23:14)
[2018-08-15] MEDS: RESTORIL PO PRN ×2 (01:22→23:14)
[2018-08-15] MEDS: XOPENEX NEB INH SCH ×6 (03:37→23:45)
[2018-08-15] MEDS: SOLU-MEDROL IV SCH ×3 (04:41→18:13)
[2018-08-15 05:43] LABS: HEMOGLOBIN 14.2 g/dL (14.0-18.0); MCH 30.3 PG (27-31); MCV 91.9 FL (81-99); MPV 9.9 FL (7.4-10.4); RBC 4.68 XMIL (4.7-6.1); RDW 15.7 % (11.5-14.5); WBC 2.98 X1000 (4.8-10.8)
[2018-08-15 06:25] LABS: HEMOGLOBIN A1C 5.9 % (4.8-6.0)
[2018-08-15 06:53] LABS: AGAP 21; BUN 21 mg/dL (8-22); CALCIUM 8.8 mg/dL (8.8-10.2); CHLORIDE 98 mmol/L (98-107); COSMO 291; CREATININE 1.1 mg/dL (0.7-1.2); ESTIMATED GFR > 60; GLUCOSE 218 mg/dL (70-104); POTASSIUM 4.3 mmol/L (3.5-5.1); SODIUM 141 mmol/L (136-145); TCO2 22 mmol/L (25-35)
--- NOTE | 2018-08-15 07:01 | EKG Report ---
Test Performed on : 08/15/2018 06:37:07 AM Test Reason : chest pain Blood Pressure : / mmHG Vent. Rate : 097 BPM Atrial Rate : 170 BPM P-R Int : 000 ms QRS Dur : 080 ms QT Int : 358 ms P-R-T Axes : 000 041 092 degrees QTc Int : 454 ms Atrial fibrillation. Nonspecific T wave abnormality Abnormal ECG When compared with ECG of 15-AUG-2018 06:36, (Unconfirmed) QRS axis shifted left Criteria for Lateral infarct are no longer present Criteria for Inferior infarct are no longer present Confirmed by Luis OSORIO, Odin Keller ([id number]) on 08/15/2018 4:41:54 PM
[2018-08-15] MEDS ORDERED: INSULIN PEN NEEDLES ONE (08:33)
--- NOTE | 2018-08-15 08:36 | CARDIOLOGY PROGRESS NOTE ---
DATE: 08/15/2018 CHIEF COMPLAINT: Chest pain, shortness of breath. SUBJECTIVE: Today, Mr. Gambino says that his breathing is more comfortable, his pain is gone. He has had troponin levels checked, all of them are negative. His EKG done this morning at 6:37 a.m. shows sinus rhythm with a minor nonspecific ST change. He is resting comfortably with nasal CPAP. OBJECTIVE: Vital signs: Blood pressure is 175/88, temperature 97.5, pulse 108, respiration 16. General: He is awake, alert, in no distress. HEENT: Unremarkable. Chest: Symmetrical breath sounds. Cardiac: The heart sounds are irregularly irregular with a systolic murmur over the aortic area. This is about 2/6. It is distant. Abdomen: Obese, nontender. Extremities: Showed stasis dermatitis bilaterally. Neurological: His neurological exam is basically within normal range. He is awake, follows commands, moves four extremities. Cranial nerves are normal. BLOOD WORK: Sodium 141, potassium 4.3, BUN 21, creatinine 1.1. Hemoglobin is 14.2, hematocrit 43%, white cell count 2980. IMPRESSION: 1. Patient who presents with increasing chest pain. He does have coronary heart disease. 2. Severe aortic stenosis. 3. Morbid obesity. 4. Sleep apnea. 5. Permanent atrial fibrillation. RECOMMENDATION: At this time, we will continue supportive measures. I am going to add digoxin and spironolactone to his regimen. We will probably arrange for a followup heart catheterization on him, and then we will take if from there. The patient's condition seems to be a little more stable today. cc: Hayes Adame MD
[2018-08-15] MEDS: LANOXIN IV SCH ×3 (10:05→20:23)
[2018-08-15] MEDS: LOPRESSOR PO SCH ×3 (10:05→20:15)
[2018-08-15] MEDS: ALDACTONE PO SCH ×2 (10:05→20:15)
[2018-08-15] MEDS: LASIX IV SCH (10:06)
[2018-08-15] MEDS: ASPIRIN PO SCH (10:06)
[2018-08-15] MEDS: PRILOSEC PO SCH (10:06)
[2018-08-15] MEDS: VITAMIN D PO SCH (10:06)
[2018-08-15] MEDS: LOVENOX SUBQ SCH ×2 (10:06→21:50)
[2018-08-15] MEDS: BASAGLAR SUBQ SCH ×2 (10:09→20:23)
[2018-08-15] MEDS: ANTIVERT PO SCH ×3 (11:06→20:15)
[2018-08-15] MEDS: FLONASE NAS SCH (11:06)
[2018-08-15] MEDS: ZITHROMAX 500 MG/NS 500 MG/250 ML IVPB IV SCH (12:31)
[2018-08-15] MEDS: DITROPAN XL PO SCH ×2 (12:31→20:19)
--- NOTE | 2018-08-15 14:17 | PROGRESS NOTE ---
DATE: 08/15/2018 SUBJECTIVE: The patient seems to be breathing more comfortable today. He is not complaining of chest pain. Troponins are negative x3. He is tolerating p.o., and it looks like he had a good night. For now, we will continue with the same management. He seems to be doing better. OBJECTIVE: Vital Signs: Temperature 97.9, pulse 102, respiratory rate 17, blood pressure 152/84. Oxygen saturation 100% on 3 L of nasal cannula. HEENT: Head normocephalic. No trauma. PERRLA. Neck supple. No JVD. No masses. Central trachea. Chest clear to auscultation. Some crepitations at the bases. Cardiovascular: RRR. Systolic murmur. Abdomen soft, obese, protuberant. Nontender. Extremities: Bilateral lower extremity venous stasis some dermatitis. 2+ lower extremity edema. Neurologic: The patient is alert and oriented x3. No focal deficits. LABORATORY: WBC 2.9, hemoglobin 14.2, hematocrit 43, platelets 139,000. Sodium 141, potassium 4.3, chloride 98, bicarbonate 22. BUN 21, creatinine 1.1, glucose 218. Calcium 8.8. ASSESSMENT AND PLAN: 1. Chest pain in a patient with history of coronary artery disease. 2. Severe aortic stenosis. 3. Morbid obesity. 4. Sleep apnea. 5. Permanent atrial fibrillation. Overall, this patient is doing a little bit better. We will continue with the same management. Cardiology Department has placed this patient on digoxin and spironolactone. He is not complaining of chest pain today. We will put this patient on a healthy heart diet. He also has a history of sleep apnea, and he is using his CPAP machine during the night. Hemoglobin A1c 5.9. cc: Dread Nicholson MD
[2018-08-15] MEDS: CRESTOR PO SCH (20:15)
[2018-08-16] MEDS: XOPENEX NEB INH SCH ×6 (03:18→23:48)
[2018-08-16] MEDS: LOPRESSOR PO SCH ×4 (03:33→21:52)
[2018-08-16] MEDS: SOLU-MEDROL IV SCH ×3 (03:33→18:30)
--- NOTE | 2018-08-16 07:32 | EKG Report ---
Test Performed on : 08/16/2018 07:12:03 AM Test Reason : chest pain Blood Pressure : / mmHG Vent. Rate : 076 BPM Atrial Rate : 070 BPM P-R Int : 000 ms QRS Dur : 070 ms QT Int : 370 ms P-R-T Axes : 000 038 190 degrees QTc Int : 416 ms Atrial fibrillation. with premature ventricular or aberrantly conducted complexes. ST & T wave abnormality, consider inferior ischemia ST & T wave abnormality, consider anterolateral ischemia Abnormal ECG When compared with ECG of 15-AUG-2018 06:37, T wave inversion now evident in Inferior leads T wave inversion now evident in Anterior leads Confirmed by Luis OSORIO, Odin Keller ([id number]) on 08/16/2018 4:53:27 PM
[2018-08-16 07:59] LABS: HEMATOCRIT 41.6 % (42.0-52.0); HEMOGLOBIN 13.7 g/dL (14.0-18.0); MCH 30.4 PG (27-31); MCHC 32.9 g/dL (33-37); MCV 92.2 FL (81-99); RBC 4.51 XMIL (4.7-6.1); RDW 16.1 % (11.5-14.5); WBC 5.93 X1000 (4.8-10.8)
[2018-08-16 08:05] LABS: AGAP 10; BUN 24 mg/dL (8-22); CALCIUM 8.4 mg/dL (8.8-10.2); CHLORIDE 98 mmol/L (98-107); COSMO 278; ESTIMATED GFR > 60; GLUCOSE 172 mg/dL (70-104); POTASSIUM 4.2 mmol/L (3.5-5.1); SODIUM 135 mmol/L (136-145); TCO2 27 mmol/L (25-35)
[2018-08-16] MEDS: ALDACTONE PO SCH ×2 (09:03→21:52)
[2018-08-16] MEDS: PRILOSEC PO SCH (09:03)
[2018-08-16] MEDS: DITROPAN XL PO SCH ×2 (09:03→21:53)
[2018-08-16] MEDS: LANOXIN PO SCH (09:03)
[2018-08-16] MEDS: VITAMIN D PO SCH (09:04)
[2018-08-16] MEDS: ANTIVERT PO SCH ×3 (09:04→18:30)
[2018-08-16] MEDS: LASIX IV SCH (09:05)
[2018-08-16] MEDS: ASPIRIN PO SCH (09:11)
[2018-08-16] MEDS: BASAGLAR SUBQ SCH ×2 (09:19→21:54)
--- NOTE | 2018-08-16 09:55 | CARDIOLOGY PROGRESS NOTE ---
DATE: 08/16/2018 CHIEF COMPLAINT: Shortness of breath, chest discomfort. SUBJECTIVE: Mr. Gambino is sitting up in the chair. He is definitely breathing more comfortably. He has no chest pain at this time. His cough is more productive. OBJECTIVE: VITAL SIGNS: Blood pressure 134/67, pulse 87, respirations 15, temperature 98 degrees. GENERAL: He is awake, in no distress. HEENT: Normal. CHEST: Much clearer to auscultation and percussion. HEART: Sounds are irregularly irregular and the systolic murmur of aortic stenosis is a little louder than it was a couple of days ago. ABDOMEN: Obese. EXTREMITIES: Show trace edema, brawny, bilaterally. He has extensive discoloration of both legs. NEUROLOGICAL: He walks with some difficulty. His gait is unsteady. BLOOD WORK: Today, sodium 135, potassium 4.2, BUN 22, creatinine 1.0. Hemoglobin 13.7. IMPRESSION: 1. Patient who presented with chest discomfort. It appeared to be unstable angina; however, he has ruled out for myocardial infarction. His EKGs do not show any acute ischemic changes although he does have some diffuse ST-T abnormalities which may be related to digoxin effect. 2. Persistent atrial fibrillation. 3. History of severe coronary heart disease. 4. Severe aortic stenosis. 5. Obesity. 6. Sleep apnea syndrome. RECOMMENDATIONS: At this point in time, we will continue present therapy. Patient seems to be improving. I would probably arrange for elective left and right heart catheterization for Tuesday morning and then we will decide on further intervention. He may be transferred to [place] for TAVR procedure if the coronary circulation is not going to be addressed. cc: Hayes Adame MD
[2018-08-16] MEDS: LOVENOX SUBQ SCH ×2 (10:11→22:03)
--- NOTE | 2018-08-16 14:40 | PROGRESS NOTE ---
DATE: 08/16/2018 SUBJECTIVE: This patient has been feeling good. He is complaining of mild chest soreness on and off, mostly when he eats. No nausea, no vomiting. No diarrhea, no constipation. OBJECTIVE: Vital Signs: Temperature 98.3, pulse 79, respiratory rate 16, blood pressure 148/98, oxygen saturation 98% on room air. HEENT: Head normocephalic. No trauma. PERRLA. Neck: Supple. No JVD. No masses. Central trachea. Chest: Clear to auscultation. Some crepitus at the bases. Cardiovascular: RRR, systolic murmur. Abdomen: Soft, obese, protuberant, nontender. Extremities: Bilateral lower extremities venous status with the dermatitis, 2+ lower extremity edema. Neurologic: Alert and oriented x 3. No focal neurological deficits. LABORATORY: WBC 5.9, hemoglobin 13.7, hematocrit 41.6, platelets 143,000. Sodium 135, potassium 4.2, chloride 98, bicarbonate 27, BUN 24, creatinine 1, glucose 172, calcium 8.4. ASSESSMENT AND PLAN: 1. Chest pain likely due to unstable angina. EKG with no ischemic changes. Troponins have been negative x 4. He is not complaining of chest pain at this moment. It looks like he will be scheduled for a left and right heart catheterization this coming Tuesday. Depending on the results, he will be treated medically or will be transferred to another facility. 2. Severe aortic stenosis. Aware. Continue with same management. 3. Morbid obesity. Aware. 4. Sleep apnea. Continue with the CPAP machine. 5. Permanent atrial fibrillation. Continue with the same treatment. Cardiology Department is following this patient closely. cc: Dread Nicholson MD
[2018-08-16] MEDS: FLONASE NAS SCH (14:44)
[2018-08-16] MEDS: ZITHROMAX 500 MG/NS 500 MG/250 ML IVPB IV SCH (14:44)
[2018-08-16] MEDS: CRESTOR PO SCH (21:52)
[2018-08-16] MEDS: HUMULIN R SUBQ SCH (21:54)
[2018-08-17] MEDS: XOPENEX NEB INH SCH ×6 (03:30→22:49)
[2018-08-17] MEDS: LOPRESSOR PO SCH ×4 (04:30→22:59)
[2018-08-17] MEDS: SOLU-MEDROL IV SCH ×3 (04:32→18:18)
[2018-08-17] MEDS: HUMULIN R SUBQ SCH ×4 (06:26→22:58)
[2018-08-17 07:13] LABS: HEMATOCRIT 47.3 % (42.0-52.0); HEMOGLOBIN 15.4 g/dL (14.0-18.0); MCH 30.3 PG (27-31); MCHC 32.6 g/dL (33-37); MCV 92.9 FL (81-99); MPV 8.9 FL (7.4-10.4); RBC 5.09 XMIL (4.7-6.1); WBC 7.04 X1000 (4.8-10.8)
--- NOTE | 2018-08-17 07:39 | EKG Report ---
Test Performed on : 08/17/2018 07:06:26 AM Test Reason : chest pain Blood Pressure : / mmHG Vent. Rate : 088 BPM Atrial Rate : 131 BPM P-R Int : 000 ms QRS Dur : 072 ms QT Int : 340 ms P-R-T Axes : 000 021 219 degrees QTc Int : [address] & T wave abnormality, consider inferolateral ischemia Abnormal ECG When compared with ECG of 16-AUG-2018 07:12, No significant change was found Confirmed by Luis OSORIO, Odin Keller ([id number]) on 08/17/2018 4:15:41 PM
[2018-08-17 07:44] LABS: AGAP 8; BUN 26 mg/dL (8-22); CALCIUM 9.7 mg/dL (8.8-10.2); CHLORIDE 98 mmol/L (98-107); COSMO 281; ESTIMATED GFR > 60; GLUCOSE 115 mg/dL (70-104); POTASSIUM 3.7 mmol/L (3.5-5.1); SODIUM 138 mmol/L (136-145); TCO2 32 mmol/L (25-35)
--- NOTE | 2018-08-17 08:03 | Diag Imaging Result Doc PS360 ---
EXAM: CHEST-2 VIEWS 08/17/2018 HISTORY: CHF pulmonary edema,severe Aortic stenosis TECHNIQUE: PA and lateral chest COMMENT: Compared to the previous examination of 08/14/2018 the chest is somewhat better expanded and the lungs appear to be clear. The heart size is at the upper limits of normal. There are bilateral pleural effusions more so on the right than the left. IMPRESSION: Resolution of pulmonary edema. Bilateral pleural effusions. Electronically signed by Reji Mccann 08/17/2018 8:01 AM
--- NOTE | 2018-08-17 09:41 | CARDIOLOGY PROGRESS NOTE ---
DATE: 08/17/2018 CHIEF COMPLAINT: Chest pain, shortness of breath. SUBJECTIVE: Mr. Gambino is doing better today. His pain is much less intense. His breathing is better. Telemetry shows atrial fibrillation with a controlled ventricular response diffuse ST-T abnormality. Chest x-ray from the 10th showed cardiomegaly with pulmonary edema. OBJECTIVE: Vital Signs: Blood pressure 159/84, temperature 97.4, pulse 83, respirations 18. General: He is awake, alert in no distress. HEENT: Unremarkable. Chest: Diminished breath sounds with no wheezes. Heart: Heart sounds are irregularly irregular with prominent systolic murmur over the aortic area. Abdomen: Obese. Extremities: Show discoloration of both feet with brawny edema. Neurologic: Follows commands. Moves all extremities. LABORATORY DATA: Hemoglobin 15.4, hematocrit 47.3, glucose 152. BMP is pending. IMPRESSION: 1. The patient presented with persistent chest pain, possibly unstable angina, abnormal EKG. 2. Coronary heart disease, severe. 3. Severe aortic stenosis. 4. Persistent atrial fibrillation. 5. Obesity. 6. Sleep apnea syndrome. RECOMMENDATIONS: At this time given his general improvement and his good renal function, I would suggest to pursue right and left heart catheterization in the morning to define his coronary anatomy and then make a referral for either transcatheter aortic valve replacement or open surgical aortic valve replacement. I explained to the patient benefits, risks, and complications. He understood and requested to go ahead with it. I will set it up for early in the morning tomorrow. cc: Hayes Adame MD MTDD
--- NOTE | 2018-08-17 11:16 | PROGRESS NOTE ---
DATE: 08/17/2018 SUBJECTIVE: This patient is feeling good. He is not complaining of chest pain or shortness of breath at this moment. No nausea or vomiting. No diarrhea. No constipation. OBJECTIVE: Vital Signs: Temperature 97.6 degrees, pulse 81, respiratory rate 18, blood pressure 141/90, oxygen saturation 98 on room air. HEENT: Head normocephalic. No trauma. PERRLA. Neck: Supple. No JVD. No masses. Central trachea. Chest: Clear to auscultation. Some crepitus at the bases. Cardiovascular: Regular rhythm and rate. Systolic murmur. Abdomen: Soft, obese, protuberant, nontender. Extremities: Bilateral lower extremity venous stasis with dermatitis and 2+ lower extremity edema. Neurological Examination: Alert and oriented x3. No focal deficits. Laboratory: WBCs 7, hemoglobin 15.4, hematocrit 47.3, platelets 164,000. Sodium 138, potassium 3.7, chloride 98, bicarbonate 32, BUN 26, creatinine 1, glucose 115, calcium 9.7, magnesium 2. ASSESSMENT AND PLAN: 1. Chest pain, likely secondary to unstable angina. The plan is to go ahead and do a heart catheterization tomorrow morning. Depending on the results, we will treat this patient medically or he will be transferred to another facility, [facility]. 2. Severe aortic stenosis. Aware. Continue with the same management. We will do a cardiac catheterization tomorrow to decide further treatment. 3. Morbid obesity. Aware. 4. Sleep apnea. Continue with CPAP machine. 5. Permanent atrial fibrillation. Continue with the same treatment. Cardiology following this patient closely. cc: Dread Nichoslon MD
[2018-08-17] MEDS: ANTIVERT PO SCH ×3 (11:30→22:59)
[2018-08-17] MEDS: ALDACTONE PO SCH ×2 (11:30→22:58)
[2018-08-17] MEDS: VITAMIN D PO SCH (11:30)
[2018-08-17] MEDS: LANOXIN PO SCH (11:31)
[2018-08-17] MEDS: ASPIRIN PO SCH (11:31)
[2018-08-17] MEDS: DITROPAN XL PO SCH ×2 (11:31→22:59)
[2018-08-17] MEDS: PRILOSEC PO SCH (11:31)
[2018-08-17] MEDS: FLONASE NAS SCH (11:33)
[2018-08-17] MEDS: LASIX IV SCH (11:34)
[2018-08-17] MEDS: BASAGLAR SUBQ SCH ×2 (11:38→22:56)
[2018-08-17] MEDS: LOVENOX SUBQ SCH (11:39)
[2018-08-17] MEDS: ZITHROMAX 500 MG/NS 500 MG/250 ML IVPB IV SCH (15:38)
[2018-08-17] MEDS: RESTORIL PO PRN (22:57)
[2018-08-17] MEDS: XANAX PO PRN (22:57)
[2018-08-17] MEDS: CRESTOR PO SCH (22:59)
[2018-08-18] MEDS: SOLU-MEDROL IV SCH (03:12)
[2018-08-18] MEDS: XOPENEX NEB INH SCH ×6 (03:15→23:32)
[2018-08-18] MEDS ORDERED: NITROGLYCERIN ONE (07:22)
[2018-08-18] MEDS ORDERED: HEPARIN 1000 UNITS/NS 2,000 UNIT/1,000 ML IV.SOLN ONE (07:22)
[2018-08-18] MEDS ORDERED: HEPARIN 1000 UNITS/NS 1,000 UNIT/500 ML IV.SOLN ONE (07:33)
[2018-08-18] MEDS ORDERED: NS 100 ML ONE (07:34)
[2018-08-18] MEDS ORDERED: CLAVE PUMP SET NO FILTER 12260 ONE (07:41)
[2018-08-18] MEDS ORDERED: NS 1,000 ML ONE (07:41)
[2018-08-18] MEDS ORDERED: CLAVE TWINSITE 32 IN 11959 ONE (07:41)
[2018-08-18] MEDS ORDERED: VERSED ONE (07:41)
[2018-08-18] MEDS ORDERED: DEMEROL ONE (07:41)
[2018-08-18 08:08] LABS: INR 1.07; PROTIME 14.8 Seconds (11.0-16.0)
[2018-08-18 08:09] LABS: PTT 34.3 Seconds (22.3-41.8)
[2018-08-18] MEDS: HUMULIN R SUBQ SCH ×4 (08:21→22:48)
[2018-08-18 08:45] LABS: AGAP 11; BUN 32 mg/dL (8-22); CALCIUM 9.6 mg/dL (8.8-10.2); CHLORIDE 99 mmol/L (98-107); COSMO 289; ESTIMATED GFR > 60; GLUCOSE 142 mg/dL (70-104); POTASSIUM 4.3 mmol/L (3.5-5.1); SODIUM 140 mmol/L (136-145); TCO2 30 mmol/L (25-35)
[2018-08-18] MEDS: LOPRESSOR PO SCH ×4 (09:39→22:49)
[2018-08-18] MEDS: DITROPAN XL PO SCH ×2 (10:52→21:29)
[2018-08-18] MEDS: PRILOSEC PO SCH (10:52)
[2018-08-18] MEDS: ALDACTONE PO SCH ×2 (10:52→21:30)
[2018-08-18] MEDS: ASPIRIN PO SCH (10:52)
[2018-08-18] MEDS: LASIX IV SCH (10:52)
[2018-08-18] MEDS: VITAMIN D PO SCH (10:52)
[2018-08-18] MEDS: ANTIVERT PO SCH ×3 (10:53→21:29)
[2018-08-18] MEDS: BASAGLAR SUBQ SCH ×2 (10:53→21:30)
[2018-08-18] MEDS: FLONASE NAS SCH (10:54)
[2018-08-18] MEDS: LANOXIN PO SCH (10:54)
[2018-08-18] MEDS ORDERED: NS 1,000 ML IV ONE (13:00)
[2018-08-18] MEDS: RANEXA PO SCH ×2 (14:30→21:29)
[2018-08-18] MEDS: ZITHROMAX 500 MG/NS 500 MG/250 ML IVPB IV SCH (14:30)
--- NOTE | 2018-08-18 16:51 | PROGRESS NOTE ---
DATE: 08/18/2018 SUBJECTIVE: This patient had a cardiac cath done today. It looks like this patient will be treated medically. I do not have the final result of the procedure. This patient is hemodynamically stable. He is tolerating p.o. No chest pain at this moment. OBJECTIVE: Vital Signs: Temperature 98.4, pulse 81, respiratory rate 20, blood pressure 147/94, oxygen saturation 98 on 3 L of nasal cannula. HEENT: Head normocephalic. No trauma. PERRLA. Neck: Supple. No JVD. No masses. Central trachea. Chest: Clear to auscultation. Some crepitus at the bases. Cardiovascular: Regular rhythm and rate. Systolic murmur. Abdomen: Soft, obese, protuberant. Nontender, nondistended. No hepatosplenomegaly. Extremities: Bilateral lower extremity venous stasis with dermatitis and around 2+ pitting edema bilaterally. His right inguinal area access for the cardiac cath looks fine. No signs of bleeding or hematoma. Neurological: Alert and oriented x3. No focal deficits. LAB: PT 14.8, INR 1, PTT 34.3. Sodium 140, potassium 4.3, chloride 99, bicarbonate 30, BUN 32, creatinine 1, glucose 142, calcium 9.6. ASSESSMENT AND PLAN: 1. Chest pain, likely secondary to unstable angina, status post cardiac cath. It looks like he has a lot of arterial calcification. We will wait for the final report, but it looks like he is going to be treated medically. 2. Aortic stenosis. We will wait for the final report. We will follow Cardiology Department recommendations. 3. Morbid obesity, aware. 4. Sleep apnea. Continue with the CPAP machine. 5. Permanent atrial fibrillation. Continue with same treatment. Cardiology following this patient closely. cc: Dread Nicholson MD
--- NOTE | 2018-08-18 17:21 | CARDIAC CATH REPORT ---
DATE: 08/18/2018 PROCEDURES PERFORMED: 1. Right heart catheterization. 2. Left heart catheterization. 3. Selective bilateral coronary arteriography. 4. Opacification of right femoral artery with deployment of 6-Congolese Angio-Seal device. HISTORY: A 72-year-old male who presented with increasing chest pains and dyspnea. He has been found to have aortic stenosis by transesophageal echocardiogram and transthoracic echocardiogram. He ruled out for myocardial infarction; however, because of previous history of coronary atherosclerosis, we recommended a followup right and left heart catheterization to redefine his coronary anatomy and assess invasively the severity of the aortic stenosis. The benefits, risks, and complications were discussed. He understood and requested to proceed. DESCRIPTION OF PROCEDURE: The patient came into the cardiac medical lab assistant in the fasting state. The right groin was prepped and draped in a sterile fashion, anesthetized with lidocaine 1%. A 6-Congolese sheath was placed in the right femoral vein using the modified Seldinger technique, and then another 6-Congolese sheath was inserted in the right femoral artery by following the modified Seldinger technique. The patient received 2 doses of Versed 1 mg and 2 doses of Demerol 25 mg for sedation. Then I advanced the Tyler-Heath catheter 6-Congolese to the level of the right pulmonary artery. The pulmonary pressure was measured. Pulmonary capillary wedge pressure was measured. A sample of blood was drawn from the pulmonary artery to determine the cardiac output by the Misael method. Several cardiac outputs were carried out by thermodilution. Then this catheter was pulled back from the pulmonary artery into the right ventricle and right atrium. The pressures were measured at each level, and then this catheter was removed and the sheath was flushed. Then we sampled the blood from the femoral artery. Then we measured the femoral artery pressure. Then we advanced a 5-Congolese A-2 multipurpose catheter to the ascending aorta. Simultaneous pressure determination between aortic root and femoral artery carried out. about 7 mm Hg difference noted (greater in RFA as expected). Using a straight tip guidewire, the aortic valve was negotiated. Then we measured simultaneously the pressure between the right femoral artery and the left ventricle. A gradient was noted. Then we pulled back the catheter from the left ventricle into the ascending aorta, and a gradient was again noted. Then this catheter was removed. Then we advanced a 6-Congolese right Essence catheter, and the right coronary artery was opacified. Then we used a 6-Congolese left Essence 5 catheter to opacity the left coronary artery. The 2 vessels were opacified in multiple projections. At the conclusion of the procedure, all of the catheters were removed. The sheath was flushed. The right femoral artery was opacified, and then Angio-Seal device was deployed successfully. The femoral venous sheath was removed manually, and hemostasis was accomplished by hand compression. The patient tolerated the procedure well without complication. SUMMARY OF HEMODYNAMIC FINDINGS: Right atrial pressure mean is 13 mmHg. Right ventricle is 42/10. Pulmonary artery is 42/23 with a mean of 35. Left ventricular pressure is 167/11 and then 175/12. Aortic pressure is 151/86. A maximum gradient (peak to peak) of 25 mmHg was measured across the aortic valve and a mean gradient of 22 mmHg. The pulmonary capillary wedge pressure mean was 17 mmHg. Cardiac output was obtained multiple times, and the average was 4.24 L per minute. Cardiac index was 1.9 L. The Misael cardiac output was 4.54 L per minute. The pulmonary artery saturation was 65%. Aortic saturation was 96%. The femoral artery pressure was 158/75. There was about 5 to 8 mmHg difference between the femoral artery greater than the central aortic pressure. The aortic valve area was calculated at 1.25 cm2 using the mean gradient of 22 mmHg. CONCLUSIONS: In summary, these hemodynamics indicate moderate pulmonary hypertension with normal LVEDP, low cardiac output, and a moderate degree of aortic stenosis with a valve area of 1.25 cm2. SUMMARY OF ANGIOGRAPHIC FINDINGS: 1. Right coronary artery: The right coronary artery is a dominant vessel. It shows extensive calcification. The proximal to mid segment of the vessel shows diffuse 30% plaque. The mid to distal portion shows about 30% to 40% plaque. A right ventricular branch originates from the acute margin and appears to be mildly diffusely diseased. The termination portion of the right coronary artery just before the origin of the posterior descending shows a 60 % to 70% stenosis. One of the posterior ventricular lateral branches has a 70% to 80% stenosis distally. This is probably not a good target for coronary intervention. 2. Left coronary artery: The left main coronary artery shows diffuse calcification. There is no more than 20% stenosis of the proximal portion of the left main. The left main divides into LAD and circumflex. 3. Left anterior descending coronary artery: This vessel shows diffuse calcification. After giving rise to 2 septal branches, the LAD shows a 50% to 60% stenosis with a tiny area of ulceration. The LAD then makes a turn and goes down the anterior ventricular groove, and it shows diffuse disease in the order of 40% to 50%. 4. Circumflex coronary artery: The circumflex gives rise to a high lateral branch that shows diffuse disease in the order of 60% to 70%. It is diffusely calcified. Then it gives rise to a lateral branch that shows proximal 30% to 40%, then distal diffuse 60% prior to giving rise to the terminal bifurcation. Next, the circumflex continues, gives rise to the sinus bradley branch and then a left atrial branch. It gives rise to a terminal posterolateral vessel that is small. FLUOROSCOPY: Fluoroscopy reveals extensive calcification of all the coronary arteries, the aortic valve, the mitral annulus, and also a portion of the aortic root. OPACIFICATION OF RIGHT FEMORAL ARTERY: The right femoral artery shows some diffuse atherosclerosis. The Angio-Seal device was deployed successfully. CONCLUSIONS: In summary, this study showed: 1. Moderate aortic stenosis with a mean gradient of 22 mmHg, aortic valve area of 1.25 cm2. 2. Low cardiac index 1.9 L per minute per m sq. 3. Moderate pulmonary hypertension estimated at 35 mmHg. Pulmonary pressure is 42/23 mmHg. 4. Diffuse calcific coronary atherosclerosis with worse lesion noted at the level of the LAD where there is an ulceration with a plaque in the order of 60%. The circumflex also shows diffuse stenosis of about 60% involving the largest of its lateral branches. 5. The right coronary artery also shows a tight lesion in a distal posterolateral ventricular branch of about 80%. These lesions are not good targets for percutaneous intervention, and in general, this patient does not seem to have coronary vessels that are good targets for surgical revascularization. 6. Diffuse atherosclerotic changes of the right femoral artery. RECOMMENDATIONS: Based on the anatomical findings, I would suggest to treat this patient conservatively with antiplatelet agents, anti-angina medications, Ranexa, try to optimize his body weight, manage his sleep apnea syndrome, and follow up with his regular physicians. The patient is not a candidate for coronary intervention and does not require aortic valve replacement at this time. Second opinion will be sought if so desired by patient/family and primary service. cc: MD RENATO Lim
[2018-08-18] MEDS: XANAX PO PRN (21:29)
[2018-08-18] MEDS: CRESTOR PO SCH (21:30)
[2018-08-18] MEDS ORDERED: INSULIN PEN NEEDLES ONE (21:43)
[2018-08-19] MEDS: XOPENEX NEB INH SCH ×3 (03:03→11:27)
[2018-08-19] MEDS: LOPRESSOR PO SCH (05:20)
[2018-08-19 05:40] LABS: EOS# 0.01 X1000 (0.0-0.7); EOS% 0.1 % (0.0-10.0); HEMATOCRIT 49.6 % (42.0-52.0); HEMOGLOBIN 16.2 g/dL (14.0-18.0); IMM GRAN# 0.03 X1000 (0.0-0.04); IMM GRAN% 0.3 % (0.0-0.5); LYMPH# 2.28 X1000 (1.2-3.4); LYMPH% 24.3 % (20.5-51.1); MCHC 32.7 g/dL (33-37); MCV 91.9 FL (81-99); MONO# 1.26 X1000 (0.11-0.59); MONO% 13.4 % (1.7-9.3); MPV 9.3 FL (7.4-10.4); NEUT% 61.9 % (42.2-75.2); PLT 164 X1000 (130-400); RDW 15.7 % (11.5-14.5); WBC 9.38 X1000 (4.8-10.8)
[2018-08-19 06:18] LABS: AGAP 13; BUN 33 mg/dL (8-22); CALCIUM 8.4 mg/dL (8.8-10.2); CHLORIDE 99 mmol/L (98-107); COSMO 290; CREATININE 0.9 mg/dL (0.7-1.2); ESTIMATED GFR > 60; GLUCOSE 51 mg/dL (70-104); POTASSIUM 4.1 mmol/L (3.5-5.1); SODIUM 143 mmol/L (136-145); TCO2 31 mmol/L (25-35)
[2018-08-19] MEDS: HUMULIN R SUBQ SCH ×2 (07:06→11:40)
[2018-08-19] MEDS ORDERED: ELIQUIS PO SCH (09:15)
[2018-08-19] MEDS: VITAMIN D PO SCH (09:30)
[2018-08-19] MEDS: ALDACTONE PO SCH (09:30)
[2018-08-19] MEDS: ASPIRIN PO SCH (09:30)
[2018-08-19] MEDS: LANOXIN PO SCH (09:31)
[2018-08-19] MEDS: DITROPAN XL PO SCH (09:32)
[2018-08-19] MEDS: ANTIVERT PO SCH (09:32)
[2018-08-19] MEDS: PRILOSEC PO SCH (09:32)
[2018-08-19] MEDS: FLONASE NAS SCH (09:33)
[2018-08-19] MEDS: LASIX IV SCH (09:33)
[2018-08-19] MEDS: BASAGLAR SUBQ SCH (09:39)
[2018-08-19 11:34] VITALS: BP 134/94
--- NOTE | 2018-08-19 13:31 | CARDIOLOGY PROGRESS NOTE ---
DATE: 08/19/2018 CHIEF COMPLAINT: Shortness of breath, chest pain. SUBJECTIVE: Mr. Gambino is doing fine today. He has not had any issue with the right groin. Overall he feels more comfortable. OBJECTIVE: Blood pressure is 120/72, pulse fluctuates from 56 to 101 when he sits up and moves, respirations 16, temperature 98.1, pulse right now is 83. HEENT unremarkable. Chest sounds clear to auscultation and percussion. Heart sounds are irregularly irregular with a systolic aortic murmur. Abdomen is obese. Extremities showed trace brawny edema. Neurologic: Follows commands, moves all 4 extremities. DIAGNOSTIC DATA: Hemoglobin is 16.2, platelet count 164,000, white cell count is 9380. Sodium is 143, potassium 4.1, BUN is 33, creatinine 0.9, magnesium was 2.0 two days ago. IMPRESSION: 1. The patient has moderate aortic stenosis. Aortic valve area 1.25 cm sq as noted yesterday by heart catheterization. 2. Moderate to severe diffuse calcific coronary artery disease involving small branches of the circumflex, the LAD diagonal. 3. Morbid obesity. Body mass index 41. 4. Sleep apnea syndrome. 5. Permanent atrial fibrillation. RECOMMENDATIONS: At this point in time, our advice is to maximize medical therapy. He is going to go back on Eliquis. He will take either aspirin 162 or Plavix 75 to manage his coronary heart disease. He will resume cholesterol lowering medications, beta blockers. He will continue spironolactone. During this admission, his left ventricular ejection fraction by nuclear imaging was determined to be 72%. We did use a 16-bin protocol to estimate his ejection fraction. He will follow up with Dr. Cezar Zhu who is his primary sales mgr. I think the patient may be discharged home later on today with instructions to call us if there is any issue involving the groin. cc: Hayes Adame MD
[2018-08-19] MEDS ORDERED: LOPRESSOR PO SCH (21:00)
[2018-08-19] MEDS ORDERED: RANEXA PO SCH (21:00)
--- NOTE | 2018-09-21 08:40 | DISCHARGE SUMMARY ---
ADMISSION DATE: 08/14/2018 DISCHARGE DATE: 08/19/2018 PRIMARY CARE PHYSICIAN: Dr. Jayjay Richard. ADMISSION DIAGNOSES: 1. Chest pain in a known coronary artery disease patient. 2. Critical aortic stenosis. 3. Known coronary artery disease. 4. Bronchitis. 5. Diabetes. DISCHARGE DIAGNOSES: 1. Chest pain, likely secondary to unstable angina, resolved. 2. Aortic stenosis. 3. Morbid obesity. 4. Sleep apnea. 5. Permanent atrial fibrillation. 6. Diabetes. SUMMARY OF FINDINGS: This is a 72-year-old male with multiple medical problems, who is well known to the Hospitalist Service, who began having increased symptoms over the weekend, prior to arriving with midsternal chest pain radiating to the left shoulder that was intermittent, and then progressed to constant, causing pressure and associated shortness of breath, some nausea was also noted. He was admitted. We consulted Cardiology. We did do a myocardial perfusion scan on 08/14/2018 that was read with a normal ejection fraction of 72%. No evidence of abnormal extracardiac uptake. Normal wall motion. We did do a limited view echo that also showed an estimated ejection fraction to be greater than 55%. He had general improvement of his renal function. He had a cardiac cath on 08/18/2018 that showed a conclusion of moderate aortic stenosis, low cardiac index of 1.9 L/minute per meter squared, moderate pulmonary hypertension. The recommendation of it was to treat the patient conservatively with antiplatelet agent, anti- angina medication of Ranexa to try to optimize his body weight and manage his sleep apnea syndrome, and follow up with his primary care physician. He was not a candidate for coronary intervention, and does not require an aortic valve replacement at this time, according to documentation from the cardiac cath, so he was discharged home in stable condition. DISCHARGE MEDICATIONS: 1. He had a prescription for digoxin 125 mcg p.o. daily. 2. Lasix 40 mg p.o. daily. 3. Metoprolol 50 mg p.o. b.i.d. 4. Ranexa 1000 mg p.o. b.i.d. 5. Spironolactone 25 mg p.o. b.i.d. He is to continue his other home medications. FOLLOWUP: Follow up with his primary care physician and with Dr. Adame, Cardiology, in 3 weeks, and call the office for an appointment. DISCHARGE INSTRUCTIONS: All discharge instructions were reviewed with the patient, and he verbalized understanding. TIME SPENT: A 35-minute discharge. Dictated by ART Martinez for Artis Edgar MD cc: ART Martinez MD Kirk L. Jackson, MD Luis N. Villanueva, MD
== END 2018-08-19 14:52 | disposition home or self-care (01) | DRG 287 ==
LOC: ED 05:39 → SUATTDRO 08:49 → EDIPHOLD 08:49 → 3S 23:49 → 3N 08-15 21:56 → 3S 08-18 08:17
PROVIDERS: ATTEND Internal Medicine
CPT/HCPCS: 36415; 71010; 71020; 71045; 71046; 78451; 80048; 80053; 81001; 82550; 82948; 83036; 83735; 83880; 84484; 85025; 85027; 85610; 85730; 93005; 93010; 93306; 93460; 94640; 94761; 94799; 96365; 96372; 96375; 96376; 99285; A9270; A9500; C1760; C8924; J0456; J1160; J1644; J1650; J1940; J2175; J2250; J2270; J2920; J7030; Q9957; Q9967; XXXXX

== ENCOUNTER 2018-10-10 14:47 | Inpatient (IN) ==
--- NOTE | 2018-10-10 16:14 | Diag Imaging Result Doc PS360 ---
EXAM: CHEST-2 VIEWS HISTORY: edema TECHNIQUE: Chest two views COMPARISON: 10/06/2018 FINDINGS: There are small infiltrates in the right lung base. No cardiomegaly. The vessels are not distended. Small amount of pleural fluid Is present. IMPRESSION: Atelectasis with a small infiltrate in the right lung base with a small pleural effusion. Electronically signed by Camrelo Bajwa 10/10/2018 4:11 PM
[2018-10-10 16:19] LABS: BASO# 0.03 X1000 (0.0-0.2); BASO% 0.4 % (0.0-0.8); EOS# 0.33 X1000 (0.0-0.7); EOS% 4.3 % (0.0-10.0); HEMATOCRIT 37.9 % (42.0-52.0); HEMOGLOBIN 12.3 g/dL (14.0-18.0); IMM GRAN# 0.05 X1000 (0.0-0.04); IMM GRAN% 0.7 % (0.0-0.5); LYMPH# 0.88 X1000 (1.2-3.4); LYMPH% 11.6 % (20.5-51.1); MCH 30.8 PG (27-31); MCHC 32.5 g/dL (33-37); MONO# 1.05 X1000 (0.11-0.59); MONO% 13.8 % (1.7-9.3); MPV 8.9 FL (7.4-10.4); NEUT# 5.25 X1000 (1.4-6.5); NEUT% 69.2 % (42.2-75.2); PLT 186 X1000 (130-400); RBC 3.99 XMIL (4.7-6.1); RDW 15.7 % (11.5-14.5); WBC 7.59 X1000 (4.8-10.8)
[2018-10-10 16:37] LABS: ALBUMIN 2.7 g/dL (3.5-5.0); CALCIUM 8.7 mg/dL (8.8-10.2); CREATININE 1.8 mg/dL (0.7-1.2); POTASSIUM 4.8 mmol/L (3.5-5.1); TOTAL PROTEIN 5.8 g/dL (6.3-8.3)
--- NOTE | 2018-10-10 17:15 | ED EKG INTERP ---
This chart was entered by Gaye Linn Scribe, acting as scribe for Jania Wood MD. EKG Interpretation - EKG Time of EKG reading by physician:: 16:04 EKG Read and Signed by:: Jania Wood EKG Interpretation (*Must complete 3 of following elements*): Abnormal (rhythm - atrial fibrillation with premature ventricular or aberrantly conducted complexes) Rate: 96 ST Wave: non-specific ST changes Comments: abnormal ECG Attestation - Physician/ MARK Attestation The physician spent face to face time with patient:: No Advanced Practice Provider documentation review:: Supervising physician onsite and consulted in the evaluation and care of this patient. The physician did not have a face to face encounter with the patient. This chart was documented by the indicated scribe, (Gaye Linn Scribe) and accurately reflects the services I performed and decisions made by me, Jania Wood MD, as attested by the provider's signature.
[2018-10-10] MEDS ORDERED: SEPTRA DS PO ONE (20:13)
--- NOTE | 2018-10-10 20:38 | PROVIDER DOCUMENTATION ---
This chart was entered by Porsche Schuler Scribe, acting as scribe for Misael Roberts MD. HPI-General Adult - General Chief Complaint: Extremity Pain Stated Complaint: broken leg Time Seen by Provider: 10/10/18 19:29 Source: patient Allergies/Adverse Reactions: Patient Allergies Allergy/AdvReac Type Severity Reaction Status Date / Time Penicillins Allergy Severe ANAPHYLAXIS Verified 10/06/18 13:47 clindamycin [From Cleocin] Allergy Unknown NAUSEA Verified 10/06/18 13:47 influenza virus vaccine, AdvReac Severe ANAPHYLAXIS Verified 10/06/18 13:47 specific Home Medications: Home Medication List Medication Instructions Recorded Confirmed Last Taken Type Omeprazole [Prilosec] 20 mg PO DAILY 08/28/12 09/05/18 08/13/18 History Alprazolam [Xanax] 0.5 mg PO BID PRN PRN 06/10/14 09/05/18 08/11/18 History Apixaban [Eliquis] 5 mg PO BID 06/10/14 09/05/18 08/13/18 History ROSUVAstatin [Crestor] 20 mg PO HS 06/10/14 09/05/18 08/12/18 History Hydrocodone/Acetaminophen [[place] 1 each PO Q6H PRN PRN 05/04/18 09/05/18 02:00 History 10-325 Tablet] Metoprolol Succinate E.r. [Toprol 50 mg PO BID #120 tab 05/05/18 09/05/18 Rx Xl] Cholecalciferol (Vitamin D3) 1,000 unit PO DAILY 06/29/18 09/05/18 06/23/18 History [Vitamin D3] Meclizine HCl 12.5 mg PO TID 06/29/18 09/05/18 08/13/18 History Nitroglycerin [Nitromist] 4.1 gm TL PRN PRN 06/29/18 09/05/18 08/14/18 History Oxybutynin E.r. [Ditropan Xl] 10 mg PO BID 06/29/18 09/05/18 08/12/18 History Potassium Chloride 10 meq PO DAILY PRN 06/29/18 09/05/18 07/30/18 History Temazepam [Restoril] 30 mg PO HS PRN PRN 06/29/18 09/05/18 08/13/18 History Triamcinolone Acetonide [Nasacort] 1 spray NS DAILY 06/29/18 09/05/18 06/29/18 History Digoxin [Lanoxin] 125 microgm PO DAILY tablet 08/19/18 09/05/18 Unknown Rx Furosemide [Lasix] 40 mg PO DAILY #30 tab 08/19/18 09/05/18 Unknown Rx Ranolazine E.r. [Ranexa] 1,000 mg PO BID #60 tab 08/19/18 09/05/18 Unknown Rx Spironolactone [Aldactone] 25 mg PO BID #60 tab 08/19/18 09/05/18 Unknown Rx - History of Present Illness -Gen Adult Nature of Presenting Problems: pt is a 72 yr old male presenting with right leg pain after fall last night. pt was seen 09/28/18 post fall dx as proximal fibula fx. pt in brace per DR Lau. tonight pt reports increased pain RLE, open ulcerations, redness, swelling. pt denies any other pain or injury. pt does report multiple recent falls, followed by Dr Lau and Dr Zhu. He is diabetic and takes 30 uits of Lantus bid Location of Pain/Injury: reports: lower extremity (RLE) Pain Radiation: reports: no radiation Quality of Pain: reports: aching Severity: reports: moderate Onset/Duration: reports: last night Timing: reports: still present Context/Activities at Onset: reports: light activity Modifying Factors: improves with: other (weight bearing increases pain) Associated Symptoms: reports: trouble walking, other (rle pain). denies: fever/ chills Similar Symptoms Previously?: Yes Recently seen or treated by another doctor?: Yes Review of Systems - Adult - REVIEW OF SYSTEMS - ADULT Constitutional: denies: fever Eyes: reports: no symptoms reported Ears, Nose, Mouth & Throat: reports: no symptoms reported Cardiovascular: denies: chest pain, palpitations, syncope Respiratory: denies: cough, dyspnea on exertion, shortness of breath, wheezing Gastrointestinal: reports: no symptoms reported Genitourinary: reports: no symptoms reported Musculoskeletal: reports: bone pain (RLE) Integumentary: reports: skin sores/ulcer Neurological: reports: no symptoms reported Psychiatric: reports: no symptoms reported Endocrine: reports: no symptoms reported Hematologic/Lymphatic: reports: no symptoms reported Allergic/Immunologic: reports: no symptoms reported All Other Systems: Reviewed and Negative Past History - Adult - PAST MEDICAL HISTORY-ADULT Review of Records: reports: Old Records Reviewed, Nursing Assessment Review, Medications Reviewed, Social history reviewed & non-contributory. Major Childhood Illnesses: reports: denies history Cardiovascular: reports: A-Fib, CAD, CHF, HTN, hyperlipidemia Respiratory: reports: COPD, sleep apnea Gastrointestinal: reports: denies history Obstetrical/Gynecological: reports: denies history Genitourinary: reports: chronic UTI's, prostatitis Musculoskeletal: reports: arthritis Neurological: reports: denies history Psychiatric: reports: denies history Endocrine/Immune: reports: Diabetes Other Conditions: reports: denies history - PRIOR SURGERIES/PROCEDURES Surgical/Procedure History: reports: appendectomy, cardiac stent, tonsillectomy , orthopedic (extremity) (TKA), joint replacement - PRIOR HOSPITALIZATIONS Prior Hospitalizations: reports: for similar symptoms, for other non-related - IMMUNIZATION STATUS Childhood Immunizations: See Nurse Assessment Flu Vaccine: See Nurse Assessment - FAMILY HISTORY Family History: reviewed, not pertinent - SOCIAL HISTORY Smoking: denies Substance Use: denies Living Situation: family Physical Exam-General - PHYSICAL EXAM-ADULT Initial Vital Signs Reviewed: Yes - CONSTITUTIONAL General Appearance: appears well, alert, no apparent distress, obese - EYES Eyes: PERRL/EOMI - RESPIRATORY Respiratory: lungs clear, normal breath sounds - CARDIOVASCULAR Cardiovascular: normal peripheral pulses, systolic murmur, irregularly irregular - LYMPHATIC Lymphatic: no adenopathy - MUSCULOSKELETAL Extremity: erythema (RLE), slow capillary refill, swelling (right foot), tenderness, other (brace RLE). negative: normal gait, deformity - SKIN Integumentary: ecchymosis (RLE, RUE, LUE multiple large ecchymotic areas), erythema (RLE, right foot), swelling (right foot), tenderness (RLE, right foot) , other (dry flaky skin to RLE, open, draining ulceration right foot) - NEUROLOGIC Neurologic: grossly normal, no motor/sensory deficits - PSYCHIATRIC Psych/Mental Status: normal mood/affect Progress - PLAN OF CARE/RESULTS Progress/Plan/Lab Results: Vital Signs - 8 hr 10/10/18 14:47 10/10/18 16:47 Temperature 96.6 F L Pulse Rate 88 83 Respiratory Rate 18 Blood Pressure 125/70 133/73 O2 Sat by Pulse Oximetry 99 98 Laboratory Results - last 24 hr 10/10/18 10/10/18 10/10/18 15:41 15:41 15:41 WBC 7.59 RBC 3.99 L Hgb 12.3 L Hct 37.9 L MCV 95.0 MCH 30.8 MCHC 32.5 L RDW Std Deviation 15.7 H Plt Count 186 MPV 8.9 Immature Gran % (Auto) 0.7 H Neut % (Auto) 69.2 Lymph % (Auto) 11.6 L [place] % (Auto) 13.8 H Eos % (Auto) 4.3 Baso % (Auto) 0.4 Immature Gran # (Auto) 0.05 H Neut # (Auto) 5.25 Lymph # (Auto) 0.88 L [place] # (Auto) 1.05 H Eos # (Auto) 0.33 Baso # (Auto) 0.03 Sodium 138 Potassium 4.8 Chloride 102 Carbon Dioxide 23 L Anion Gap 14 BUN 32 H Creatinine 1.8 H Estimated GFR/1.73 m2 37 BUN/Creatinine Ratio 18 Glucose 121 H Calculated Osmolality 284 Calcium 8.7 L Total Bilirubin 1.00 AST 32 ALT 12 Alkaline Phosphatase 50 Nic-O-Jnfahioiamt Pept 2354 H Total Protein 5.8 L Albumin 2.7 L Globulin 3.0 Albumin/Globulin Ratio 1.0 Orders Category Date Time Status Nursing- Obtain EKG once Care 10/10/18 15:47 Active CHEST-2 VIEWS [RAD] Stat Exams 10/10/18 15:46 Completed BNP [PRO B-NATRIURETIC PEPTIDE] Stat Lab 10/10/18 15:41 Completed CBC WITH DIFF [HEME] Stat Lab 10/10/18 15:41 Completed CMP [COMPREHENSIVE METABOLIC PANEL] [CHEM] Stat Lab 10/10/18 15:41 Completed D-DIMER [COAG] Stat Lab 10/10/18 15:41 Received Result Diagrams: 10/10/18 15:41 10/10/18 15:41 - XRAY 1 XRAY Study: Chest Impression: Abnormal ( EXAM: CHEST-2 VIEWS HISTORY: edema TECHNIQUE: Chest two views COMPARISON: 10/06/2018 FINDINGS: There are small infiltrates in the right lung base. No cardiomegaly. The vessels are not distended. Small amount of pleural fluid Is present. IMPRESSION: Atelectasis with a small infiltrate in the right lung base with a small pleural effusion. Electronically signed by Carmelo Bajwa 10/10/2018 4:11 PM 10/10/18 1611 Interpreting Physician: Carmelo Bajwa MD Dictated Date/Time: 10/10/18 161 cc: Jania Wood MD;) - CONSULTS/PCP/HOSPITALIST Notification #1 *Consult/PCP/Hospitalist*: [place] Time Discussed: 20:00 Consult Disposition: Admit Departure - Departure Date of Disposition Decision: 10/10/18 Time of Disposition Decision: 20:37 DIAGNOSIS: Ulcer of foot Qualifiers: Laterality: right Non-pressure ulcer stage: with fat layer exposed Qualified Code(s): L97.512 - Non-pressure chronic ulcer of other part of right foot with fat layer exposed Disposition: ADMITTED INPATIENT 09 Certified Medical Emergency: Emergent Condition: Fair - Critical Care Note This patient required my direct & personal management of CC.: No Attestation - Physician/ MARK Attestation The physician spent face to face time with patient:: Yes Advanced Practice Provider documentation review:: Supervising physician onsite and consulted in the evaluation and care of this patient. The physician did have a face to face encounter with the patient. This chart was documented by the indicated scribe, (Porsche Schuler, David) and accurately reflects the services I performed and decisions made by me, Misael Roberts MD, as attested by the provider's signature.
[2018-10-11] MEDS: NORCO-7.5 PO PRN ×3 (02:05→11:55)
[2018-10-11] MEDS ORDERED: ZOFRAN IV PRN (09:30)
[2018-10-11] MEDS ORDERED: TYLENOL PO PRN (09:30)
--- NOTE | 2018-10-11 09:57 | EKG Report ---
Test Performed on : 10/10/2018 4:04:36 PM Test Reason : cp Blood Pressure : / mmHG Vent. Rate : 096 BPM Atrial Rate : 166 BPM P-R Int : 000 ms QRS Dur : 074 ms QT Int : 358 ms P-R-T Axes : 000 012 175 degrees QTc Int : 452 ms Atrial fibrillation. with premature ventricular or aberrantly conducted complexes. Nonspecific ST and T wave abnormality Abnormal ECG When compared with ECG of 06-OCT-2018 13:47, (Unconfirmed) Criteria for Septal infarct are no longer present Nonspecific T wave abnormality, worse in Inferior leads Nonspecific T wave abnormality has replaced inverted T waves in Anterior leads Unconfirmed Result
--- NOTE | 2018-10-11 10:29 | Diag Imaging Result Doc PS360 ---
EXAM: FOOT 2 VIEWS RIGHT HISTORY: fall, ulcers TECHNIQUE: Two views COMPARISON: None. FINDINGS: There are vascular calcifications. No fracture or dislocation is appreciated. No destructive lesion. IMPRESSION: No acute abnormality right foot. Electronically signed by Susan Bender 10/11/2018 10:26 AM
--- NOTE | 2018-10-11 10:34 | Diag Imaging Result Doc PS360 ---
EXAM: LOWER LEG-RIGHT HISTORY: fall, TECHNIQUE: Two views COMPARISON: 09/28/2018. FINDINGS: There is a comminuted, nondisplaced fracture of the proximal fibula with mild callus formation area. No dislocation. No new fracture or dislocation. There is irregular calcification about the anterolateral tibia most consistent with heterotopic ossification. There are vascular calcifications. IMPRESSION: Callus formation about the previously noted proximal fibular shaft fracture. No new fracture or dislocation. Electronically signed by Susan Bender 10/11/2018 10:32 AM
--- NOTE | 2018-10-11 10:37 | Diag Imaging Result Doc PS360 ---
EXAM: FEMUR MIN 2 VIEWS RIGHT HISTORY: fall TECHNIQUE: Two views COMPARISON: None. FINDINGS: There are degenerative changes and vascular calcification. No acute fracture or dislocation is appreciated. IMPRESSION: No acute abnormality right femur. Electronically signed by Susan Bender 10/11/2018 10:35 AM
[2018-10-11] MEDS: HUMALOG (PARKWAY) SUBQ SCH ×3 (11:00→21:18)
[2018-10-11] MEDS: SEPTRA DS PO SCH ×2 (11:56→21:16)
[2018-10-11] MEDS ORDERED: INSULIN PEN NEEDLES ONE (12:38)
[2018-10-11] MEDS: BASAGLAR SUBQ SCH ×2 (12:45→21:17)
--- NOTE | 2018-10-11 15:06 | Extremity Venous Study ---
EXAM: Venous U/S Bilateral Legs HISTORY: elevated ddimer, recent tibia fracture, RLE edema TECHNIQUE: Fernandez scale, color Doppler, and duplex evaluation was performed. COMPARISON: None. FINDINGS: The deep veins of the bilateral lower extremities demonstrate appropriate compressibility and augmentation. No intraluminal thrombus is visualized. There is no evidence for DVT. There is reflux right common femoral vein suggesting valvular insufficiency. The superficial veins appear patent. IMPRESSION: No evidence for deep venous thrombosis bilateral lower extremities. Suspect valvular insufficiency right common femoral vein. Electronically signed by Susan Bender 10/11/2018 3:03 PM
--- NOTE | 2018-10-11 15:45 | Diag Imaging Result Doc PS360 ---
EXAM: LUNG SCAN / VQ HISTORY: elevated ddimer, recent tibia fracture TECHNIQUE: Ventilatory images were obtained during the inhalation of 39.4 mCi technetium DTPA. Perfusion images were obtained following the IV administered aeration of 5.9 mCi MAA. COMPARISON: None. FINDINGS: There is somewhat patchy ventilatory radiotracer distribution is noted. There are no V/Q mismatches. No segmental perfusion abnormalities. No evidence for pulmonary embolus. IMPRESSION: No evidence for acute pulmonary embolism. Electronically signed by Susan Bender 10/11/2018 3:43 PM
--- NOTE | 2018-10-11 16:07 | HISTORY AND PHYSICAL ---
CHIEF COMPLAINT: Right lower extremity pain and swelling. HISTORY OF PRESENT ILLNESS: This is a 72-year-old gentleman who presented to the emergency room with increasing right leg pain after falling the previous night. he reports multiple falls over the past weeks. The patient was seen in the emergency room on September 28 after a fall and he was found to have a comminuted fracture involving the proximal shaft of the fibula with minimal displacement. He reportedly is being followed by Drs. Lau and Marko. At present he does have the leg in a brace. He states over the last 24 to 48 hours he has developed increasing right lower extremity pain. with redness and swelling under the area of the strap of his brace. He describes his pain as an aching type pain. It increases with weightbearing or movement. Elevation does help somewhat. He denies any numbness or tingling or decreased sensation to his foot or leg. PAST MEDICAL HISTORY: Atrial fibrillation, congestive heart failure, diabetes mellitus, hypertension, CAD status post PCI. PAST SURGICAL HISTORY: Appendectomy, total hip replacement, tonsillectomy, sinus . SOCIAL HISTORY: He smokes a pack a day. He denies alcohol or illicit drug use. ALLERGIES: Penicillins and influenza vaccine which cause anaphylaxis and clindamycin that causes nausea. HOME MEDICATIONS: A list will be obtained by the nursing staff and once verified we will review and continue as appropriate. REVIEW OF SYSTEMS: Discussed with patient with pertinent positives stated in the HPI. He denied any syncope or dizziness, any chest pain or palpitations, any cough, fever, chills, recent weight loss or weight gain, hematuria, dysuria, frequency, urgency. PHYSICAL EXAMINATION: GENERAL: This is a 72-year-old gentleman who is lying in the bed, in no distress. VITAL SIGNS: Blood pressure is 127/73 with a heart rate of 100, respirations are 18, temperature is 97.8 degrees, with room air saturations 97%. EYES: Pupils are equal, round, react to light. EOMs are intact sclerae anicteric. HENT: Head is normocephalic, atraumatic. Mucous membranes are moist. NECK: Supple with trachea midline. CARDIOVASCULAR: Irregularly irregular rate and rhythm. He has right lower extremity edema noted that is about just above the ankle down to his foot. He does have bruises in different stages to upper and lower extremities. He is noted to have a draining ulceration to his right foot. NEUROLOGIC: He is alert and oriented x3. LABS: WBC is 7.5, with hemoglobin 12.3, hematocrit 37.9, and platelets of 186, 000. D-dimer is 1.96. Sodium 138, potassium 4.8, BUN 32, creatinine 1.8, with a glucose of 121. Chest x-ray revealed atelectasis with a right lower lobe infiltrate. EKG reveals atrial fibrillation. ASSESSMENT: 1. Right foot abrasion with cellulitis. 2. Recent mildly comminuted fracture of the proximal fibula with minimal displacement. 3. Frequent falls. 4. Known coronary artery disease. 5. Severe aortic stenosis. 6. Diabetes mellitus. 7. Chronic atrial fibrillation. 8. Morbid obesity. 9. Hypertension. PLAN: The patient will be admitted to the medical-surgical floor. He will be placed on telemetry. Will give supplemental oxygen if needed. We will identify his home medications and continue these as is appropriate. He will be placed on fall precautions, pattern blood glucose with sliding scale insulin. We will get a V/Q lung scan. We will get a lower extremity Doppler, bilateral. As he has had multiple falls and he is now complaining of increasing pain along his femur, we will do a right femur lower extremity and foot x-ray. We will obtain a wound culture. Antibiotics. Repeat a CBC and CMP in the morning. Further treatments pending hospital course. Dictated by ART Dickinson for Richard Valles MD This chart was documented by, ART Dickinson and accurately reflects the services performed, treatment plan and medical decisions as attested by the providers signature Richard Valles MD. cc: ART Dickinson MD [facility]
[2018-10-11] MEDS: LEVAQUIN 750 MG/D5W 750 MG/150 ML IVPB IV SCH (17:05)
[2018-10-11] MEDS ORDERED: PEPCID PO PRN (17:10)
[2018-10-11] MEDS ORDERED: XANAX PO PRN (17:10)
[2018-10-11] MEDS ORDERED: KLOR-CON PO PRN (17:10)
[2018-10-11] MEDS ORDERED: ZOFRAN ODT PO PRN (17:10)
[2018-10-11] MEDS ORDERED: NITROGLYCERIN SL PRN (17:10)
[2018-10-11] MEDS ORDERED: ANTIVERT PO PRN (17:10)
[2018-10-11] MEDS: NORCO-10 PO PRN (17:56)
[2018-10-11] MEDS: ELIQUIS PO SCH (21:16)
[2018-10-11] MEDS: PLETAL PO SCH (21:16)
[2018-10-11] MEDS: RESTORIL PO SCH (21:16)
[2018-10-11] MEDS: CRESTOR PO SCH (21:16)
[2018-10-11] MEDS: TOPROL XL PO SCH (21:17)
[2018-10-11] MEDS: RANEXA PO SCH (21:17)
[2018-10-12] MEDS: NORCO-10 PO PRN ×3 (00:12→21:09)
--- NOTE | 2018-10-12 01:52 | HISTORY AND PHYSICAL ---
ADDENDUM: Patient seen and examined by myself. Full note dictated and discussed with nurse practitioner. Patient had a recent right tib-fib fracture. He has a boot. It appears as though the strap on the boot may have been rubbing on his foot. He has a current abrasion with right lower extremity cellulitis. He has a history of recurrent pneumonia as well as obstructive sleep apnea. We will place him in the hospital, antibiotics, get Wound Therapy involved, physical therapy and we will follow. cc: Richard Valles MD
[2018-10-12] MEDS: HUMALOG (PARKWAY) SUBQ SCH ×4 (06:21→23:41)
[2018-10-12] MEDS: PRILOSEC PO SCH (06:22)
[2018-10-12 06:37] LABS: BASO# 0.04 X1000 (0.0-0.2); BASO% 0.6 % (0.0-0.8); EOS# 0.34 X1000 (0.0-0.7); EOS% 4.9 % (0.0-10.0); HEMATOCRIT 32.8 % (42.0-52.0); HEMOGLOBIN 10.7 g/dL (14.0-18.0); IMM GRAN# 0.04 X1000 (0.0-0.04); IMM GRAN% 0.6 % (0.0-0.5); LYMPH# 1.01 X1000 (1.2-3.4); LYMPH% 14.6 % (20.5-51.1); MCH 30.5 PG (27-31); MCHC 32.6 g/dL (33-37); MCV 93.4 FL (81-99); MONO# 1.04 X1000 (0.11-0.59); MONO% 15.1 % (1.7-9.3); MPV 8.8 FL (7.4-10.4); NEUT# 4.44 X1000 (1.4-6.5); NEUT% 64.2 % (42.2-75.2); PLT 220 X1000 (130-400); RBC 3.51 XMIL (4.7-6.1); RDW 15.4 % (11.5-14.5); WBC 6.91 X1000 (4.8-10.8)
[2018-10-12 07:14] LABS: ALBUMIN 2.2 g/dL (3.5-5.0); CALCIUM 8.7 mg/dL (8.8-10.2); CREATININE 1.3 mg/dL (0.7-1.2); POTASSIUM 3.8 mmol/L (3.5-5.1); TOTAL BILIRUBIN 0.6 mg/dL (0.20-1.00); TOTAL PROTEIN 5.6 g/dL (6.3-8.3)
[2018-10-12] MEDS ORDERED: TADALAFIL 5 MG PO SCH (09:00)
[2018-10-12] MEDS: BASAGLAR SUBQ SCH ×2 (09:42→21:12)
[2018-10-12] MEDS: SEPTRA DS PO SCH ×2 (09:45→21:08)
[2018-10-12] MEDS: FLAGYL PO SCH ×3 (09:45→21:21)
[2018-10-12] MEDS: ELIQUIS PO SCH ×2 (09:45→21:08)
[2018-10-12] MEDS: RANEXA PO SCH ×2 (09:45→21:08)
[2018-10-12] MEDS: PLETAL PO SCH ×2 (09:45→21:09)
[2018-10-12] MEDS: VITAMIN D PO SCH (09:45)
[2018-10-12] MEDS: LASIX PO SCH (09:46)
[2018-10-12] MEDS: TOPROL XL PO SCH ×2 (09:46→21:09)
[2018-10-12] MEDS: LEVAQUIN 750 MG/D5W 750 MG/150 ML IVPB IV SCH (14:30)
[2018-10-12] MEDS: RESTORIL PO SCH (21:08)
[2018-10-12] MEDS: CRESTOR PO SCH (21:08)
--- NOTE | 2018-10-13 00:50 | PROGRESS NOTE ---
DATE: 10/12/2018 SUBJECTIVE: Patient has no new complaints. Still having lots of swelling and redness in his bilateral lower extremities. PHYSICAL EXAMINATION: Vital Signs: Temperature 97.7 degrees, pulse 92, respiratory 17, BP 113/72. General: Patient is awake, alert. Currently is in no distress. HEENT: Normocephalic. Neck: Supple. Cardiovascular: Regular rate. No murmurs. Chest: Clear. No crackles. No wheezing. ASSESSMENT: 1. Chronic ulceration right foot. 2. Acute cellulitis. 3. Comminuted fracture, proximal tibia. 4. Frequent falls. 5. Diabetes. PLAN: We will continue patient in the hospital. Continue physical therapy. Continue wound therapy. Currently is on Levaquin and Flagyl. cc: Richard Valles MD
--- NOTE | 2018-10-13 01:31 | CONSULTATION ---
DATE OF CONSULTATION: 10/12/2018 HISTORY OF PRESENT ILLNESS: The patient is a 72-year-old male who has had a history of multiple falls over the last week or so. He originally injured his right lower extremity and presented to the emergency room on 09/28/2018 and x-rays revealed a right fibula fracture. He underwent evaluation with Dr. Lau on 10/05/2018, and was placed in a hinged knee brace. He has been using his walker for ambulation. He has had a subsequent fall after being placed in the brace. He has had some increased pain, discomfort and swelling. He underwent evaluation in the emergency room and was noted have evidence irritation from one of the straps, an area of abrasion on his right foot, and significant erythema. He was admitted to the hospital with right lower extremity cellulitis and has undergone further evaluation. Orthopedic consultation is requested. HOME MEDICATION: Reviewed and contained in the chart. ALLERGIES: Penicillin, influenza vaccine which caused anaphylaxis, clindamycin. PAST MEDICAL HISTORY: Significant for atrial fibrillation, congestive heart failure, diabetes mellitus, hypertension, CAD status post PCI. PAST SURGICAL HISTORY: Appendectomy, total hip replacement, tonsillectomy, sinus surgery. PHYSICAL EXAMINATION: General: The patient is awake, alert and cooperative with the examination. Extremities: His right lower extremity has some moderate diffuse swelling, some discomfort in his calf. He does have an abrasion on posterolateral aspect of his knee. He has a small area of abrasion along the posterolateral distal 1/3 of his thigh as well. The patient has significant erythema on his foot and has a large eschar along the dorsal aspect of his foot. He does have some chronic discoloration to his lower leg from chronic stasis. X-rays of his right lower extremity revealed the comminuted nondisplaced proximal femur fracture. There was a irregular calcification on the anteromedial distal 1/3 of the tibia, it appeared to be chronic consistent with a heterotopic calcification. IMPRESSION: Cellulitis right lower extremity. PLAN: At this point we will discontinue his knee brace. We will allow him to weight bear as tolerated right lower extremity. He will undergo evaluation with [facility], and will obtain a boot to elevate his heels for precaution. The patient may follow up with Sid after discharge. cc: Misael De Souza MD
[2018-10-13] MEDS: HUMALOG (PARKWAY) SUBQ SCH ×2 (06:21→19:40)
[2018-10-13] MEDS: PRILOSEC PO SCH (06:24)
[2018-10-13] MEDS ORDERED: NITROGLYCERIN SL PRN (07:00)
[2018-10-13] MEDS: BASAGLAR SUBQ SCH ×2 (09:57→21:00)
[2018-10-13] MEDS: RANEXA PO SCH ×2 (10:03→20:40)
[2018-10-13] MEDS: PLETAL PO SCH ×2 (10:03→20:35)
[2018-10-13] MEDS: TOPROL XL PO SCH ×2 (10:04→20:39)
[2018-10-13] MEDS: VITAMIN D PO SCH (10:04)
[2018-10-13] MEDS: LASIX PO SCH (10:05)
[2018-10-13] MEDS: FLAGYL PO SCH ×3 (10:05→20:38)
[2018-10-13] MEDS: ELIQUIS PO SCH ×2 (10:05→20:40)
[2018-10-13] MEDS: LEVAQUIN 750 MG/D5W 750 MG/150 ML IVPB IV SCH (14:48)
[2018-10-13] MEDS: RESTORIL PO SCH (20:39)
[2018-10-13] MEDS: NORCO-10 PO PRN (20:40)
[2018-10-13] MEDS: CRESTOR PO SCH (20:40)
--- NOTE | 2018-10-14 03:39 | PROGRESS NOTE ---
DATE: 10/13/2018 SUBJECTIVE: The patient currently has no new complaints. States overall he is feeling okay. PHYSICAL EXAMINATION: Vital Signs: Temperature 98.3 degrees, pulse 95, respiratory 20, BP 125/59. General: Patient is awake, alert. He is in no distress. HEENT: Normocephalic. Neck: Supple. Cardiovascular: Regular rate. Chest: Clear. Abdomen: Soft. Extremities: Moves all extremities. He has multiple bruising on bilateral lower extremities. His right foot is bandaged. ASSESSMENT: 1. Chronic right foot ulceration. 2. Mildly comminuted fracture, right fibula. 3. Frequent falls. PLAN: We will continue patient in the hospital. Continue antibiotics, wound care. We will transition back to rehab when bed is available. We will need to continue wound care at rehab. cc: Richard Valles MD
[2018-10-14] MEDS: NORCO-10 PO PRN ×4 (03:43→21:07)
[2018-10-14] MEDS: BASAGLAR SUBQ SCH ×3 (03:43→21:05)
[2018-10-14] MEDS: HUMALOG (PARKWAY) SUBQ SCH ×5 (05:21→22:52)
[2018-10-14] MEDS: PRILOSEC PO SCH (06:44)
[2018-10-14] MEDS ORDERED: VANCOMYCIN IV PER PHARMACY MISC SCH (08:30)
[2018-10-14] MEDS: ELIQUIS PO SCH ×2 (08:54→21:07)
[2018-10-14] MEDS: VITAMIN D PO SCH (08:54)
[2018-10-14] MEDS: LASIX PO SCH (08:54)
[2018-10-14] MEDS: PLETAL PO SCH ×2 (08:54→21:07)
[2018-10-14] MEDS: TOPROL XL PO SCH ×2 (08:54→21:06)
[2018-10-14] MEDS: RANEXA PO SCH ×2 (08:54→21:06)
[2018-10-14] MEDS ORDERED: VANCOMYCIN 2,500 MG in NS 500 ML IV ONE (10:00)
[2018-10-14] MEDS: CRESTOR PO SCH (21:07)
[2018-10-14] MEDS: RESTORIL PO SCH (22:59)
--- NOTE | 2018-10-15 00:49 | PROGRESS NOTE ---
DATE: 10/14/2018 SUBJECTIVE: Patient notes that he is feeling better. Still having lots of pain in his lower extremities and swelling right greater than left lower extremity. Denies any fevers or chills. PHYSICAL EXAMINATION: Vital Signs: Temperature 98 degrees, pulse 87, respiratory 20, BP 104/61. General: Patient is awake, alert. He is sitting in the chair. He is in no distress. HEENT: Normocephalic. Neck: Supple. Cardiovascular: Regular rate. Chest: Clear. Abdomen: Soft. Extremities: Bilateral lower extremities have bruising. ASSESSMENT: 1. Methicillin-resistant Staphylococcus aureus. 2. Chronic ulcer, right foot. 3. Comminuted fracture, right fibula. 4. Frequent falls. 5. Severe aortic stenosis. 6. Known coronary artery disease. 7. Diabetes. 8. Morbid obesity. PLAN: We will continue patient in the hospital. We will stop his antibiotics and change to vancomycin. Continue physical therapy, wound control. Continue his chronic medications. Further orders as needed. cc: Richard Valles MD
[2018-10-15] MEDS ORDERED: INSULIN PEN NEEDLES MISC PRN (06:48)
[2018-10-15] MEDS: PRILOSEC PO SCH (07:00)
[2018-10-15] MEDS: HUMALOG (PARKWAY) SUBQ SCH ×4 (07:00→20:32)
[2018-10-15] MEDS: NORCO-10 PO PRN ×2 (09:22→19:22)
[2018-10-15] MEDS: ELIQUIS PO SCH ×2 (09:23→20:00)
[2018-10-15] MEDS: RANEXA PO SCH ×2 (09:23→19:59)
[2018-10-15] MEDS: LASIX PO SCH (09:23)
[2018-10-15] MEDS: PLETAL PO SCH ×2 (09:23→20:00)
[2018-10-15] MEDS: BASAGLAR SUBQ SCH ×2 (09:23→20:32)
[2018-10-15] MEDS: VITAMIN D PO SCH (09:23)
[2018-10-15] MEDS: TOPROL XL PO SCH ×2 (09:23→19:59)
[2018-10-15] MEDS ORDERED: VANCOMYCIN 2,250 MG in NS 500 ML IV SCH (10:00)
[2018-10-15 10:02] LABS: HEMATOCRIT 38.2 % (42.0-52.0); HEMOGLOBIN 12.7 g/dL (14.0-18.0); MCH 31.1 PG (27-31); MCHC 33.2 g/dL (33-37); MCV 93.6 FL (81-99); MPV 8.7 FL (7.4-10.4); RBC 4.08 XMIL (4.7-6.1); RDW 15.8 % (11.5-14.5); WBC 5.22 X1000 (4.8-10.8)
[2018-10-15 10:40] LABS: ALBUMIN 2.8 g/dL (3.5-5.0); CREATININE 1.6 mg/dL (0.7-1.2); POTASSIUM 4.1 mmol/L (3.5-5.1); TOTAL BILIRUBIN 0.7 mg/dL (0.20-1.00); TOTAL PROTEIN 6.9 g/dL (6.3-8.3)
--- NOTE | 2018-10-15 19:30 | PROGRESS NOTE ---
DATE: 10/15/2018 SUBJECTIVE: Patient notes that he is feeling better still having foot pain on his right foot. Otherwise no new complaints. PHYSICAL: Temperature 97.8, pulse 82, respiratory 20, BP 132/70.General: Patient is awake, alert, he is sitting up in the bed he is in no distress, very pleasant to talk with. HEENT: Normocephalic. Neck: Supple. CV: Regular rate. Chest: Clear nonlabored. Abdomen: Soft, nondistended, obese. Extremities: Moves all extremities. He has boot on his right foot that has been repositioned and cushioned as this is likely the cause of his current wound. ASSESSMENT: 1. Methicillin-resistant Staphylococcus aureus wound infection to the right foot likely secondary to an ill-fitting boot. 2. Comminuted fracture right lower extremity. 3. Frequent falls . 4. Known coronary artery disease. 5. Severe aortic stenosis. PLAN: Overall patient has improved, he is stable, hopefully he can discharge to rehab tomorrow on oral antibiotics. cc: Richard Valles MD
[2018-10-15] MEDS: RESTORIL PO SCH (19:59)
[2018-10-15] MEDS: CRESTOR PO SCH (19:59)
[2018-10-16] MEDS: PRILOSEC PO SCH (06:20)
[2018-10-16] MEDS: HUMALOG (PARKWAY) SUBQ SCH ×2 (06:21→10:35)
[2018-10-16] MEDS: ELIQUIS PO SCH (08:32)
[2018-10-16] MEDS: VITAMIN D PO SCH (08:32)
[2018-10-16] MEDS: PLETAL PO SCH (08:32)
[2018-10-16] MEDS: RANEXA PO SCH (08:32)
[2018-10-16] MEDS: TOPROL XL PO SCH (08:33)
[2018-10-16] MEDS: BASAGLAR SUBQ SCH (08:33)
[2018-10-16] MEDS: NORCO-10 PO PRN (08:40)
[2018-10-16] MEDS: LASIX PO SCH (10:29)
--- NOTE | 2018-10-16 12:20 | DISCHARGE SUMMARY ---
ADMISSION DATE: 10/11/2018 DISCHARGE DATE: DISCHARGE DIAGNOSES: 1. Methicillin-resistant Staphylococcus aureus (MRSA) wound infection of the right foot. 2. Comminuted fracture of proximal fibular fracture, which I think has callus already, so it was not acute and it was not displaced. CONSULTATIONS: None. HOSPITAL COURSE: Briefly this is a 72-year-old male who presented from home with a fibular fracture. He did not have a tibia-fibula fracture. I think he had actually been in a boot. Dr. De Souza was consulted and told him to stop his knee brace, weight bear as tolerated and continue with wound care. In any case, the patient clinically improved. His wound culture grew out Staphylococcus aureus, which was MRSA. He was maintained on vancomycin and improved. By the day of discharge, he was felt stable for discharge. He had a dressing overlying. Heart rate was 100, blood pressure 136/79, and patient was felt stable for discharge. DISCHARGE MEDICATIONS: As follows: 1. Atrovent q.6 h. 2. Xanax 0.5 b.i.d. p.r.n. 3. Eliquis 5 b.i.d. 4. Vitamin D3 1000 units daily. 5. Pletal 100 b.i.d. Pepcid 20 b.i.d. 6. Glargine 25 to 30 units b.i.d. I would say his sugars have been fairly well controlled here and his dose has been 30 b.i.d. so we are just going to leave him on the 30 b.i.d. 7. Meclizine 12.5 t.i.d. 8. NitroMist p.r.n. 9. Prilosec 20 daily. 10. Zofran p.r.n. 11. Ranexa 1 g b.i.d. 12. Crestor 20 daily. 13. Cialis 5 daily. 14. [place] 10 q.6 h. p.r.n. pain. 15. Doxycycline 100 p.o. b.i.d. for 10 days. 16. Lasix 40 daily. 17. Toprol-XL 50 b.i.d. 18. Trazodone 50 at bedtime. This replaces temazepam, just because I do not want to mix 2 different types of benzodiazepines. FOLLOW-UP: He will need to follow up with Dr. Lau when he leaves and his PCP when he gets out of rehabilitation. COORDINATION TIME: 35-minute discharge. cc: Artis Edgar MD
[2018-10-16 14:52] VITALS: BP 112/61
== END 2018-10-16 15:46 | DRG 603 ==
LOC: P.ED 14:47 → P.EDIPHOLD 10-11 12:21 → SUATTDRO 10-11 12:21 → P.MEDSURG 10-11 13:49
PROVIDERS: ATTEND Internal Medicine
CPT/HCPCS: 71020; 71046; 73552; 73590; 73620; 78582; 80053; 82948; 83880; 85025; 85027; 85379; 87070; 87077; 87186; 93005; 93970; 94761; 94799; 96372; 97110; 97162; 97530; 99285; A9270; A9539; A9540; J1815; J1956; J2405; J3370; J7040; XXXXX

== ENCOUNTER 2019-06-22 11:46 | Inpatient (IN) ==
[2019-06-22 14:32] LABS: BASO# 0.03 X1000 (0.0-0.2); BASO% 0.5 % (0.0-0.8); EOS# 0.32 X1000 (0.0-0.7); EOS% 5.4 % (0.0-10.0); HEMATOCRIT 40.6 % (42.0-52.0); HEMOGLOBIN 12.4 g/dL (14.0-18.0); LYMPH% 16.9 % (20.5-51.1); MCH 29.1 PG (27-31); MCHC 30.5 g/dL (33-37); MCV 95.3 FL (81-99); MONO# 0.56 X1000 (0.11-0.59); MONO% 9.5 % (1.7-9.3); NEUT# 4.01 X1000 (1.4-6.5); NEUT% 67.7 % (42.2-75.2); PLT 234 X1000 (130-400); RBC 4.26 XMIL (4.7-6.1); RDW 15.5 % (11.5-14.5); WBC 5.92 X1000 (4.8-10.8)
[2019-06-22 14:38] LABS: INR 1.16
[2019-06-22 14:39] LABS: PTT 34.9 Seconds (22.3-41.8)
[2019-06-22 14:54] LABS: AGAP 9; ALB/GLOB RATIO 0.7; ALKALINE PHOSPHATASE 55 U/L (32-122); BUN 23 mg/dL (8-22); CALCIUM 9.3 mg/dL (8.8-10.2); CHLORIDE 98 mmol/L (98-107); COSMO 282; CREATININE 1.1 mg/dL (0.7-1.2); ESTIMATED GFR > 60; GLUCOSE 209 mg/dL (70-104); GOT 15 U/L (10-34); GPT 9 U/L (10-44); MAGNESIUM 1.8 mg/dL (1.5-2.7); POTASSIUM 4.4 mmol/L (3.5-5.1); SODIUM 136 mmol/L (136-145); TCO2 29 mmol/L (25-35); TOTAL BILIRUBIN 0.53 mg/dL (0.20-1.00); TOTAL PROTEIN 7.5 g/dL (6.3-8.3)
[2019-06-22] MEDS ORDERED: VANCOMYCIN IV PER PHARMACY MISC SCH (15:09)
[2019-06-22] MEDS ORDERED: ZOFRAN IV PRN (15:09)
[2019-06-22] MEDS: HUMALOG SUBQ SCH ×2 (17:31→22:00)
[2019-06-22] MEDS: KEFZOL 2 GM/D5W 2 GM/50 ML IVPB IV SCH (17:46)
[2019-06-22] MEDS: VANCOMYCIN 2,000 MG in NS 500 ML IV SCH (20:01)
[2019-06-22] MEDS: NORCO-10 PO PRN (21:06)
[2019-06-23] MEDS: NORCO-10 PO PRN ×2 (03:24→23:29)
[2019-06-23] MEDS: KEFZOL 2 GM/D5W 2 GM/50 ML IVPB IV SCH ×3 (03:29→18:30)
[2019-06-23 07:02] LABS: BASO# 0.03 X1000 (0.0-0.2); BASO% 0.5 % (0.0-0.8); EOS# 0.35 X1000 (0.0-0.7); EOS% 6.1 % (0.0-10.0); HEMATOCRIT 35.5 % (42.0-52.0); HEMOGLOBIN 10.9 g/dL (14.0-18.0); IMM GRAN# 0.02 X1000 (0.0-0.04); IMM GRAN% 0.3 % (0.0-0.5); LYMPH% 20.9 % (20.5-51.1); MCH 29.2 PG (27-31); MCHC 30.7 g/dL (33-37); MCV 95.2 FL (81-99); MONO# 0.73 X1000 (0.11-0.59); MONO% 12.7 % (1.7-9.3); NEUT% 59.5 % (42.2-75.2); PLT 216 X1000 (130-400); RBC 3.73 XMIL (4.7-6.1); RDW 15.4 % (11.5-14.5); WBC 5.73 X1000 (4.8-10.8)
[2019-06-23 07:24] LABS: AGAP 11; ALB/GLOB RATIO 0.6; ALBUMIN 2.6 g/dL (3.5-5.0); ALKALINE PHOSPHATASE 46 U/L (32-122); BUN 21 mg/dL (8-22); CALCIUM 8.5 mg/dL (8.8-10.2); CHLORIDE 103 mmol/L (98-107); COSMO 284; CREATININE 0.9 mg/dL (0.7-1.2); ESTIMATED GFR > 60; GLUCOSE 122 mg/dL (70-104); GOT 12 U/L (10-34); GPT 7 U/L (10-44); POTASSIUM 4.2 mmol/L (3.5-5.1); SODIUM 140 mmol/L (136-145); TCO2 26 mmol/L (25-35); TOTAL BILIRUBIN 0.44 mg/dL (0.20-1.00); TOTAL PROTEIN 6.6 g/dL (6.3-8.3)
[2019-06-23] MEDS: HUMALOG SUBQ SCH ×4 (07:56→20:58)
[2019-06-23] MEDS: TYLENOL PO PRN (08:28)
[2019-06-23] MEDS: ELIQUIS PO SCH (20:56)
[2019-06-23] MEDS: RANEXA PO SCH (20:56)
[2019-06-23] MEDS: PEPCID PO SCH (20:57)
[2019-06-23] MEDS: LANTUS INSULIN SUBQ SCH (20:57)
[2019-06-23] MEDS: CRESTOR PO SCH (20:57)
[2019-06-23] MEDS: TOPROL XL PO SCH (20:57)
[2019-06-24] MEDS: KEFZOL 2 GM/D5W 2 GM/50 ML IVPB IV SCH ×3 (01:44→17:47)
[2019-06-24] MEDS: VANCOMYCIN 2,000 MG in NS 500 ML IV SCH (05:13)
[2019-06-24] MEDS: NORCO-10 PO PRN ×2 (06:09→17:47)
[2019-06-24] MEDS: HUMALOG SUBQ SCH ×4 (06:33→22:26)
[2019-06-24 10:39] LABS: HEMOGLOBIN A1C 5.8 % (4.8-6.0)
[2019-06-24] MEDS: LASIX PO SCH (12:55)
[2019-06-24] MEDS: ELIQUIS PO SCH ×2 (12:55→22:25)
[2019-06-24] MEDS: VITAMIN D PO SCH (12:55)
[2019-06-24] MEDS: KLOR-CON PO SCH (12:55)
[2019-06-24] MEDS: RANEXA PO SCH ×2 (12:55→22:24)
[2019-06-24] MEDS: TOPROL XL PO SCH ×2 (12:55→22:25)
[2019-06-24] MEDS: LANTUS INSULIN SUBQ SCH ×2 (12:56→22:25)
[2019-06-24] MEDS: PEPCID PO SCH (22:25)
[2019-06-24] MEDS: CRESTOR PO SCH (22:25)
[2019-06-24] MEDS: TYLENOL PO PRN (22:25)
[2019-06-25] MEDS: NORCO-10 PO PRN (00:22)
[2019-06-25] MEDS: KEFZOL 2 GM/D5W 2 GM/50 ML IVPB IV SCH ×2 (02:48→10:22)
[2019-06-25] MEDS: HUMALOG SUBQ SCH (07:10)
[2019-06-25 07:21] VITALS: BP 137/85
[2019-06-25] MEDS: LANTUS INSULIN SUBQ SCH (10:13)
[2019-06-25] MEDS: KLOR-CON PO SCH (10:14)
[2019-06-25] MEDS: LASIX PO SCH (10:14)
[2019-06-25] MEDS: TOPROL XL PO SCH (10:14)
[2019-06-25] MEDS: RANEXA PO SCH (10:14)
[2019-06-25] MEDS: ELIQUIS PO SCH (10:15)
[2019-06-25] MEDS: VITAMIN D PO SCH (10:22)
== END 2019-06-25 12:55 | disposition home health service (06) ==
LOC: DIRADM 11:46 → SUATTDRO 11:46 → EDIPHOLD 12:39 → 4N 15:25 → UNDODISIN 06-24 13:42
PROVIDERS: ATTEND Internal Medicine